=== PATIENT | male | born 1955 | race American Indian/Alaskan Native ===

== ENCOUNTER 2018-04-06 10:00 | Inpatient (IN) | payer OTHER ==
--- NOTE | 2018-04-06 11:18 | ED PDOC ---
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 Patient denies fevers or chills. He denies pain. He is complaining of an ulceration to the plantar aspect of the right foot over the first MTP. Patient states he's completed a course of Levaquin by mouth and was sent in for admission, IV antibiotics and debridement of the wound. Past Medical History - Provider Review Nursing Documentation Reviewed: Yes - Travel History Have you recently traveled outside [place] w/in the past 3 mons?: No - Infectious Disease Hx of Infectious Diseases: None - Tetanus Immunization Tetanus Immunization: Up to Date - Cardiac Hx Angina: No Hx Cardiac Arrhythmia: No Hx Circulatory Problems: No Hx Congestive Heart Failure: No Hx Heart Murmur: No Hx Heart Transplant: No Hx Internal Defibrillator: No Hx Mitral Valve Prolapse: No Hx Pacemaker: No Hx Peripheral Edema: No Hx Peripheral Vascular Disease: No - Pulmonary Hx Asthma: No Hx Bronchitis: No Hx Emphysema: No Hx Pneumonia: No Hx Respiratory Aspiration: No Hx Respiratory Tract Infection: No Hx Sleep Apnea: No Hx Tuberculosis: No - Neurological Hx Alzheimer's Disease: No HX Cerebrovascular Accident: No Hx Dementia: No Hx Dizziness: No Hx Meningitis: No Hx Migraine: No Hx Parkinson's Disease: No Hx Seizures: No Hx Transient Ischemic Attacks (TIA): No - HEENT Other/Comment: glasses - Renal Hx Renal Disorder: No - Endocrine/Metabolic Hx Endocrine Disorders: Yes Hx Diabetes Mellitus Type 2: Yes (recently diagnosed) - Hematological/Oncological Hx AIDS: No Hx Anemia: No Hx Cancer: No Hx Chemotherapy: No Hx Cirrhosis: No Hx Hepatitis A: No Hx Hepatitis B: No Hx Hepatitis C: No Hx Metastasis: No Hx Shingles: No Hx Unexplained Bleeding: No - Integumentary Hx Dermatological Disorder: Yes Other/Comment: toe ulcer - Musculoskeletal/Rheumatological Hx Osteomyelitis: Yes - Gastrointestinal Hx Gastrointestinal Disorders: No - Genitourinary/Gynecological Hx Genitourinary Disorders: No - Psychiatric Hx Psychophysiologic Disorder: No Hx Substance Use: No - Surgical History Hx Cardiac Catheterization: No Hx Coronary Stent: No - Anesthesia Hx Anesthesia: Yes Hx Anesthesia Reactions: No Hx Malignant Hyperthermia: No Family/Social History - Physician Review Nursing Documentation Reviewed: Yes Family/Social History: Unknown Family HX Smoking Status: Never Smoked Hx Alcohol Use: No Hx Substance Use: No Allergies/Home Meds Allergies/Adverse Reactions: Allergies No Known Allergies Allergy (Verified 05/02/15 13:14) Review of Systems - Review of Systems Constitutional: absent: Fatigue, Fevers Respiratory: absent: SOB, Cough Cardiovascular: absent: Chest Pain, Palpitations Gastrointestinal: absent: Abdominal Pain, Nausea, Vomiting Genitourinary Male: absent: Dysuria Musculoskeletal: absent: Arthralgias, Back Pain, Neck Pain Skin: Skin Lesions (foot ulcer) Psychiatric: absent: Anxiety, Depression Physical Exam Vital Signs Reviewed: Yes Vital Signs Temp Pulse Resp BP Pulse Ox 04/06/18 10:27 98.2 F 81 18 176/92 H 100 Temperature: Afebrile Blood Pressure: Hypertensive Pulse: Regular Respiratory Rate: Normal Appearance: Positive for: Well-Appearing, Non-Toxic, Comfortable Pain Distress: None Mental Status: Positive for: Alert and Oriented X 3 Finger Stick Blood Glucose: 155 - Systems Exam Head: Present: Atraumatic Mouth: Present: Moist Mucous Membranes Respiratory/Chest: Present: Clear to Auscultation Cardiovascular: Present: Regular Rate and Rhythm Upper Extremity: Present: NORMAL PULSES, Swelling, Erythema, Neurovascularly I ntact, Capillary Refill < 2s, Other (right foot; + dime sized ulceration to plantar aspect of foot over 1st MTP. + edema, + surrounding erythema; sensation and distal pulses intact. ). No: Tenderness Neurological: Present: GCS=15 Skin: Present: Warm, Dry Psychiatric: Present: Alert, Oriented x 3 Medical Decision Making ED Course and Treatment: 04/06/18 11:18 62yr old male with non healing wound to plantar aspect of right foot despite outpatient antibiotics Case was discussed with Dr. Galan; she advised starting teflaro; states wound cultures are still pending. cbc wnl cmp elevated bun/cr pt ptt blood cultures pending xray; no fb, no acute fracture cxr; wnl ekg; normal sinus rhythm at 80 bpm normal axis no ST elevations QTc [address] tan; accepts admission to medicine for diabetic with a nonhealing wound to the plantar aspect of the foot with failure of outpatient antibiotics impression; infected wound, failure of outpatient abx. admit to med/surg - Lab Interpretations Lab Results: Lab Results 04/06/18 10:26: POC Glucose (mg/dL) 155 H Disposition/Present on Arrival - Present on Arrival Any Indicators Present on Arrival: Yes History of DVT/PE: No History of Uncontrolled Diabetes: Yes Urinary Catheter: No History of Decub. Ulcer: No History Surgical Site Infection Following: None - Disposition Have Diagnosis and Disposition been Completed?: Yes Diagnosis: Right foot ulcer, Failure of outpatient treatment Disposition Time: 11:21 Patient Plan: Admission Patient Problems: Current Active Problems Problem Status Onset Failure of outpatient treatment Acute Right foot ulcer Acute Condition: FAIR
[2018-04-06 11:33] LABS: BASO # 0.01 K/mm3 (0.0-2.0); BASO % 0.2 % (0.0-3.0); EOS # 0.1 (0.0-0.7); EOS % 1.4 % (1.5-5.0); GRAN # 3.56 (1.4-6.5); GRAN % 72.4 % (50.0-68.0); HEMOGLOBIN 10.8 g/dL (14.0-18.0); LYMPH # 1.1 (1.2-3.4); LYMPH % 21.5 % (22.0-35.0); MEAN CELL VOLUME 87.4 fl (80.0-105.0); MEAN CORPUSCULAR HEMOGLOBIN 28.3 pg (25.0-35.0); MEAN CORPUSCULAR HGB CONC 32.4 g/dl (31.0-37.0); MEAN PLATELET VOLUME 9.3 fl (7.0-11.0); MONO # 0.2 (0.1-0.6); MONO % 4.5 % (1.0-6.0); RBC 3.81 10^6/uL (3.5-6.1); RED CELL DISTRIBUTION WIDTH 14.2 % (11.5-14.5); WHITE BLOOD COUNT 4.9 10^3/uL (4.5-11.0)
[2018-04-06 11:37] LABS: ALB/GLOB RATIO 1.2 (1.1-1.8); CALCIUM 9.5 mg/dL (8.4-10.5); INR 1.18; PARTIAL THROMBOPLASTIN TIME 31.3 Seconds (25.1-36.5); PROTHROMBIN TIME 13.6 SECONDS (9.4-12.5)
--- NOTE | 2018-04-06 12:34 | RAD ---
Date of service: 04/06/2018 PROCEDURE: Right Foot Radiographs. HISTORY: ulcer; plantar aspect first MTP COMPARISON: None. FINDINGS: BONES: There has been amputation at the level of the proximal 1st metatarsal. There is some bony bridging between the base of the 2nd and 3rd metatarsal. There are degenerative changes in the midfoot. JOINTS: As above SOFT TISSUES: Normal. OTHER FINDINGS: None. IMPRESSION: There has been amputation at the level of the proximal 1st metatarsal. There is some bony bridging between the base of the 2nd and 3rd metatarsal. There are degenerative changes in the midfoot.
[2018-04-06] MEDS ORDERED: Vancomycin 1gm in NS 250ml 1 GM/250 ML BAG IVPB STA (12:53)
[2018-04-06] MEDS ORDERED: Piperacillin/Tazobact 3.375 gm 100 ML IVPB STA (12:53)
[2018-04-06] MEDS ORDERED: Vancomycin 1.25 GM in Sodium Chloride 0.9% 500 ML IVPB ONE (13:17)
--- NOTE | 2018-04-06 14:01 | CP.PCM.HP ---
History of Present Illness - History of Present Illness History of Present Illness: 62 year old male with past medical history of osteomyelitis of the foot, right great toe amputation in 2016, diabetes presents with right foot ulcer. Patient states he see Dr. Galan as an outpatient, and this past Friday he was seen in the office where the wound on the foot seemed it was getting worse. The ulcer is located in the plantar aspect of the right foot, without any drainage. Dr. Galan advised the patient to start levofloxacin and come in to the hospital for possible debridement. Patient denies any pain sensation, drainage from wounds, fever, chills, nausea, vomiting, abdominal pain, chest pain, shortness of breath or any other complaints at this time. He states his blood sugar is usually well controlled at home. Medical History: osteomyelitis of the foot, right great toe amputation in 2016, diabetes Surgical History: right great toe amputation in 2016 at [facility] Allergies: NKDA Social: denies alcohol, tobacco, or drug use Family History: denies Medications: levofloxacin, metformin 1000mg Present on Admission - Present on Admission Any Indicators Present on Admission: No Review of Systems - Constitutional Constitutional: absent: Chills, Fever - EENT Eyes: absent: Change in Vision - Cardiovascular Cardiovascular: absent: Chest Pain, Dyspnea - Respiratory Respiratory: absent: Dyspnea - Gastrointestinal Gastrointestinal: absent: Abdominal Pain, Constipation, Cramping, Diarrhea, Dysphagia, Hematochezia - Genitourinary Genitourinary: absent: Dysuria, Flank Pain - Musculoskeletal Musculoskeletal: absent: Atrophy, Back Pain - Integumentary Integumentary: Skin Ulcer Additional comments: right foot ulcer - Neurological Neurological: absent: Abnormal Gait, Burning Sensations, Dizziness, Numbness, Focal Weakness, Tingling, Vertigo, Weakness - Hematologic/Lymphatic Hematologic: absent: Easy Bleeding, Easy Bruising, Lymphadenopathy Past Patient History - Infectious Disease Hx of Infectious Diseases: None - Tetanus Immunizations Tetanus Immunization: Up to Date - Past Medical History & Family History Past Medical History?: Yes - Past Social History Smoking Status: Never Smoked - CARDIAC Hx Angina: No Hx Cardia Arrhythmia: No Hx Circulatory Problems: No Hx Congestive Heart Failure: No Hx Heart Murmur: No Hx Heart Transplant: No Hx Internal Defibrillator: No Hx Mitral Valve Prolapse: No Hx Pacemaker: No Hx Peripheral Edema: No Hx Peripheral Vascular Disease: No - PULMONARY Hx Asthma: No Hx Bronchitis: No Hx Emphysema: No Hx Pneumonia: No Hx Respiratory Aspiration: No Hx Respiratory Tract Infection: No Hx Sleep Apnea: No Hx Tuberculosis: No - NEUROLOGICAL Hx Alzheimer's Disease: No HX Cerebrovascular Accident: No Hx Dementia: No Hx Dizziness: No Hx Meningitis: No Hx Migraine: No Hx Parkinson's Disease: No Hx Seizures: No Hx Transient Ischemic Attacks (TIA): No - HEENT Other/Comment: glasses - RENAL Hx Chronic Kidney Disease: No - ENDOCRINE/METABOLIC Hx Endocrine Disorders: Yes Hx Diabetes Mellitus Type 2: Yes (recently diagnosed) - HEMATOLOGICAL/ONCOLOGICAL Hx AIDS: No Hx Anemia: No Hx Cancer: No Hx Chemotherapy: No Hx Cirrhosis: No Hx Hepatitis A: No Hx Hepatitis B: No Hx Hepatitis C: No Hx Metastesis: No Hx Shingles: No Hx Unexplained Bleeding: No - INTEGUMENTARY Hx Dermatological Problems: Yes Other/Comment: toe ulcer - MUSCULOSKELETAL/RHEUMATOLOGICAL Hx Osteomyelitis: Yes - GASTROINTESTINAL Hx Gastrointestinal Disorders: No - GENITOURINARY/GYNECOLOGICAL Hx Genitourinary Disorders: No - PSYCHIATRIC Hx Psychophysiologic Disorder: No Hx Substance Use: No - SURGICAL HISTORY Hx Cardiac Catheterization: No Hx Coronary Stent: No - ANESTHESIA Hx Anesthesia: Yes Hx Anesthesia Reactions: No Hx Malignant Hyperthermia: No Meds Allergies/Adverse Reactions: Allergies Allergy/AdvReac Type Severity Reaction Status Date / Time No Known Allergies Allergy Verified 05/02/15 13:14 Physical Exam - Constitutional Appears: Non-toxic, No Acute Distress - Head Exam Head Exam: ATRAUMATIC, NORMAL INSPECTION, NORMOCEPHALIC - Eye Exam Eye Exam: EOMI, Normal appearance Pupil Exam: NORMAL ACCOMODATION - ENT Exam ENT Exam: Mucous Membranes Moist - Neck Exam Neck exam: Positive for: Normal Inspection - Respiratory Exam Respiratory Exam: Clear to Auscultation Bilateral, NORMAL BREATHING PATTERN - Cardiovascular Exam Cardiovascular Exam: REGULAR RHYTHM, +S1, +S2 - GI/Abdominal Exam GI & Abdominal Exam: Normal Bowel Sounds, Soft. absent: Tenderness - Extremities Exam Extremities exam: Positive for: full ROM, pedal pulses present. Negative for: pedal edema, tenderness Additional comments: right foot ulcer on plantar aspect - Neurological Exam Neurological exam: Alert, CN II-XII Intact, Oriented x3 - Skin Skin Exam: Warm Results - Vital Signs Recent Vital Signs: Last Vital Signs Temp 98.2 F 04/06/18 10:27 Pulse 78 04/06/18 13:24 Resp 18 04/06/18 13:24 BP 168/89 H 04/06/18 13:24 Pulse Ox 100 04/06/18 13:24 - Labs Result Diagrams: 04/06/18 11:00 04/06/18 11:00 Labs: Laboratory Results - last 24 hr 04/06/18 04/06/18 04/06/18 10:26 11:00 11:00 WBC RBC Hgb Hct MCV MCH MCHC RDW Plt Count MPV Gran % Lymph % (Auto) [place] % (Auto) Eos % (Auto) Baso % (Auto) Gran # Lymph # (Auto) [place] # (Auto) Eos # (Auto) Baso # (Auto) PT 13.6 H INR 1.18 APTT 31.3 Sodium 139 Potassium 4.7 Chloride 102 Carbon Dioxide 30 Anion Gap 12 BUN 31 H Creatinine 2.0 H Est GFR ( Amer) 41 Est GFR (Non-Af Amer) 34 POC Glucose (mg/dL) 155 H Random Glucose 145 H Calcium 9.5 Total Bilirubin 0.4 AST 27 ALT 17 Alkaline Phosphatase 95 Total Protein 7.4 Albumin 4.0 Globulin 3.4 Albumin/Globulin Ratio 1.2 04/06/18 11:00 WBC 4.9 D RBC 3.81 Hgb 10.8 L Hct 33.3 L MCV 87.4 MCH 28.3 MCHC 32.4 RDW 14.2 Plt Count 165 MPV 9.3 Gran % 72.4 H Lymph % (Auto) 21.5 L [place] % (Auto) 4.5 Eos % (Auto) 1.4 L Baso % (Auto) 0.2 Gran # 3.56 Lymph # (Auto) 1.1 L [place] # (Auto) 0.2 Eos # (Auto) 0.1 Baso # (Auto) 0.01 PT INR APTT Sodium Potassium Chloride Carbon Dioxide Anion Gap BUN Creatinine Est GFR ( Amer) Est GFR (Non-Af Amer) POC Glucose (mg/dL) Random Glucose Calcium Total Bilirubin AST ALT Alkaline Phosphatase Total Protein Albumin Globulin Albumin/Globulin Ratio Assessment & Plan - Assessment and Plan (Free Text) Assessment: 62 year old male with past medical history of osteomyelitis of the foot, right great toe amputation in 2016, diabetes presents with right foot ulcer. Plan: 1. Right Foot Ulcer-rule out osteomyelitis -EKG -Chest xray shows no active disease -wound cultures, blood cultures, urine cultures pending -Afebrile -no leukocytosis -right foot xray: There has been amputation at the level of the proximal 1st metatarsal. There is some bony bridging between the base of the 2nd and 3rd metatarsal. There are degenerative changes in the midfoot. -Right foot MRi pending -ESR, CRP pending -procal pending -ID , consulted, Boghossian, follow recs -started Vancotom in ED -teflaro IV started 2. DM -insulin sliding scale with ACHS -hold home metformin -hemoglobin A1C pending -glycomark pending -fructosamine pending 3. Low normal WBC coiunt -WBC 4.9 -HIV 4th generation pending -RPR 4. Anemia -Hgb 10.8 -Iron studies -stool occult blood x3 -B12, folate levels pending -retic count -soluble transferrin -erythropoetin level pending -CBC daily 5. KAT v Diabetic Nephropathy -BUN: 31 Cr: 2 -IV fluids -continue to monitor -CMP daily GI: protonix DVT: Heparin SC Case discussed and approved with attending Dr. Rivero
--- NOTE | 2018-04-06 14:23 | RAD ---
Date of service: 04/06/2018 HISTORY: admission COMPARISON: 05/02/2015 FINDINGS: LUNGS: No active pulmonary disease. PLEURA: No significant pleural effusion identified, no pneumothorax apparent. CARDIOVASCULAR: No aortic atherosclerotic calcification present. Normal cardiac size. No pulmonary vascular congestion. OSSEOUS STRUCTURES: No significant abnormalities. VISUALIZED UPPER ABDOMEN: Normal. OTHER FINDINGS: None. IMPRESSION: No active disease.
[2018-04-06 16:16] LABS: IRON 61 ug/dL (45-180)
[2018-04-06 16:17] LABS: HDL CHOLESTEROL 42 mg/dL (29-60)
[2018-04-06 16:27] LABS: % IRON SATURATION 17 % (20-55); TOTAL IRON BINDING CAPACITY 347 ug/dL (261-462)
[2018-04-06 16:28] LABS: LDL CHOLESTEROL 96 mg/dL (0-129)
[2018-04-06] MEDS: Insulin Reg-LOW-Coverage SC SCH ×2 (16:44→22:11)
--- NOTE | 2018-04-06 16:46 | CARD ---
APPROVED REPORT Date of service: 04/06/2018 EKG Measurement Heart [id number] <Conclusion> Normal sinus rhythm Nonspecific T wave abnormality Abnormal ECG
[2018-04-06] MEDS ORDERED: Insulin Detemir 100 units/ml Vial (Levemir) SC SCH (17:00)
--- NOTE | 2018-04-06 17:09 | CP.PCM.CON ---
<Kathi Streeter - Last Filed: 04/06/18 17:38> History of Present Illness - History of Present Illness History of Present Illness: Podiatry consult note for Dr. Galan/Sarai, 62 year old male with past medical history of osteomyelitis of the foot, right great toe amputation in 2016, diabetes presents with right foot ulcer. Patient is currently seeing Dr. Galan as an outpatient, and this past Friday he was seen in the office where the wound on the foot seemed it was getting worse. Patient denies any pain sensation, drainage from wounds, fever, chills, nausea, vomiting, chest pain, shortness of breath or any other complaints at this time. Medical History: osteomyelitis of the foot, right great toe amputation in 2016, diabetes Surgical History: right great toe amputation in 2016 at [facility] Allergies: NKDA Social: denies alcohol, tobacco, or drug use Family History: denies Medications: levofloxacin, metformin 1000mg Past Patient History - Infectious Disease Hx of Infectious Diseases: None - Tetanus Immunizations Tetanus Immunization: Up to Date - Past Medical History & Family History Past Medical History?: Yes - Past Social History Smoking Status: Never Smoked - CARDIAC Hx Angina: No Hx Cardia Arrhythmia: No Hx Circulatory Problems: No Hx Congestive Heart Failure: No Hx Heart Murmur: No Hx Heart Transplant: No Hx Internal Defibrillator: No Hx Mitral Valve Prolapse: No Hx Pacemaker: No Hx Peripheral Edema: No Hx Peripheral Vascular Disease: No - PULMONARY Hx Asthma: No Hx Bronchitis: No Hx Emphysema: No Hx Pneumonia: No Hx Respiratory Aspiration: No Hx Respiratory Tract Infection: No Hx Sleep Apnea: No Hx Tuberculosis: No - NEUROLOGICAL Hx Alzheimer's Disease: No HX Cerebrovascular Accident: No Hx Dementia: No Hx Dizziness: No Hx Meningitis: No Hx Migraine: No Hx Parkinson's Disease: No Hx Seizures: No Hx Transient Ischemic Attacks (TIA): No - HEENT Other/Comment: glasses - RENAL Hx Chronic Kidney Disease: No - ENDOCRINE/METABOLIC Hx Endocrine Disorders: Yes Hx Diabetes Mellitus Type 2: Yes (recently diagnosed) - HEMATOLOGICAL/ONCOLOGICAL Hx AIDS: No Hx Anemia: No Hx Cancer: No Hx Chemotherapy: No Hx Cirrhosis: No Hx Hepatitis A: No Hx Hepatitis B: No Hx Hepatitis C: No Hx Metastesis: No Hx Shingles: No Hx Unexplained Bleeding: No - INTEGUMENTARY Hx Dermatological Problems: Yes Other/Comment: toe ulcer - MUSCULOSKELETAL/RHEUMATOLOGICAL Hx Osteomyelitis: Yes - GASTROINTESTINAL Hx Gastrointestinal Disorders: No - GENITOURINARY/GYNECOLOGICAL Hx Genitourinary Disorders: No - PSYCHIATRIC Hx Psychophysiologic Disorder: No Hx Substance Use: No - SURGICAL HISTORY Hx Cardiac Catheterization: No Hx Coronary Stent: No - ANESTHESIA Hx Anesthesia: Yes Hx Anesthesia Reactions: No Hx Malignant Hyperthermia: No Meds Allergies/Adverse Reactions: Allergies Allergy/AdvReac Type Severity Reaction Status Date / Time No Known Allergies Allergy Verified 04/06/18 15:52 - Medications Medications: Current Medications Heparin Sodium (Porcine) (Heparin) 5,000 units SC Q12 [facility]; Protocol Sodium Chloride (Sodium Chloride 0.9%) 1,000 mls @ 100 mls/hr IV .Q10H [facility] Ceftaroline Fosamil 400 mg/ (Sodium Chloride) 100 mls @ 100 mls/hr IVPB Q12 [facility]; Protocol Stop: 04/06/18 22:59 Insulin Human Regular (Humulin R Low) 0 units SC ACHS [facility]; Protocol Last Admin: 04/06/18 16:44 Dose: Not Given Pantoprazole Sodium (Protonix Ec Tab) 40 mg PO 0600 [facility] Physical Exam - Constitutional Appears: Well, Non-toxic, No Acute Distress - Head Exam Head Exam: ATRAUMATIC, NORMOCEPHALIC - Extremities Exam Additional comments: Left lower extremity: vascular: DP/PT pulses palpable, CFT <3 secs x 4, tg warm to warm, no erythema noted, minimal edema noted neuro: protective sensation intact derm: 1 cm x 1cm wound noted on the plantar aspect of submet 1, probes to bone, no malodor, tracking and tunneling noted, no active drainage, no erythema noted, minimal edema suleman wound. no other open lesions noted ortho: no pain on palpation to the area - Neurological Exam Neurological exam: Alert, Oriented x3 - Psychiatric Exam Psychiatric exam: Normal Affect - Skin Skin Exam: Normal Color Results - Vital Signs Recent Vital Signs: Last Vital Signs Temp 98 F 04/06/18 15:46 Pulse 98 H 04/06/18 15:46 Resp 18 04/06/18 15:46 BP 144/88 04/06/18 15:46 Pulse Ox 100 04/06/18 15:46 - Labs Result Diagrams: 04/06/18 11:00 04/06/18 11:00 Labs: Laboratory Results - last 24 hr 04/06/18 04/06/18 04/06/18 10:26 11:00 11:00 WBC RBC Hgb Hct MCV MCH MCHC RDW Plt Count MPV Gran % Lymph % (Auto) Pine % (Auto) Eos % (Auto) Baso % (Auto) Gran # Lymph # (Auto) Pine # (Auto) Eos # (Auto) Baso # (Auto) ESR Retic Count PT 13.6 H INR 1.18 APTT 31.3 Sodium 139 Potassium 4.7 Chloride 102 Carbon Dioxide 30 Anion Gap 12 BUN 31 H Creatinine 2.0 H Est GFR ( Amer) 41 Est GFR (Non-Af Amer) 34 POC Glucose (mg/dL) 155 H Random Glucose 145 H Lactic Acid Calcium 9.5 Iron TIBC % Saturation Total Bilirubin 0.4 AST 27 ALT 17 Alkaline Phosphatase 95 Total Protein 7.4 Albumin 4.0 Globulin 3.4 Albumin/Globulin Ratio 1.2 Triglycerides Cholesterol LDL Cholesterol Direct HDL Cholesterol 04/06/18 04/06/18 04/06/18 11:00 16:02 16:02 WBC 4.9 D RBC 3.81 Hgb 10.8 L Hct 33.3 L MCV 87.4 MCH 28.3 MCHC 32.4 RDW 14.2 Plt Count 165 MPV 9.3 Gran % 72.4 H Lymph % (Auto) 21.5 L Pine % (Auto) 4.5 Eos % (Auto) 1.4 L Baso % (Auto) 0.2 Gran # 3.56 Lymph # (Auto) 1.1 L Pine # (Auto) 0.2 Eos # (Auto) 0.1 Baso # (Auto) 0.01 ESR Retic Count PT INR APTT Sodium Potassium Chloride Carbon Dioxide Anion Gap BUN Creatinine Est GFR ( Amer) Est GFR (Non-Af Amer) POC Glucose (mg/dL) Random Glucose Lactic Acid Calcium Iron 61 TIBC 347 % Saturation 17 L Total Bilirubin AST ALT Alkaline Phosphatase Total Protein Albumin Globulin Albumin/Globulin Ratio Triglycerides 112 Cholesterol 152 LDL Cholesterol Direct 96 HDL Cholesterol 42 04/06/18 04/06/18 04/06/18 16:02 16:02 16:02 WBC RBC Hgb Hct MCV MCH MCHC RDW Plt Count MPV Gran % Lymph % (Auto) Pine % (Auto) Eos % (Auto) Baso % (Auto) Gran # Lymph # (Auto) Pine # (Auto) Eos # (Auto) Baso # (Auto) ESR 52 H Retic Count 0.63 PT INR APTT Sodium Potassium Chloride Carbon Dioxide Anion Gap BUN Creatinine Est GFR ( Amer) Est GFR (Non-Af Amer) POC Glucose (mg/dL) Random Glucose Lactic Acid 1.6 Calcium Iron TIBC % Saturation Total Bilirubin AST ALT Alkaline Phosphatase Total Protein Albumin Globulin Albumin/Globulin Ratio Triglycerides Cholesterol LDL Cholesterol Direct HDL Cholesterol 04/06/18 16:08 WBC RBC Hgb Hct MCV MCH MCHC RDW Plt Count MPV Gran % Lymph % (Auto) Pine % (Auto) Eos % (Auto) Baso % (Auto) Gran # Lymph # (Auto) Pine # (Auto) Eos # (Auto) Baso # (Auto) ESR Retic Count PT INR APTT Sodium Potassium Chloride Carbon Dioxide Anion Gap BUN Creatinine Est GFR ( Amer) Est GFR (Non-Af Amer) POC Glucose (mg/dL) 98 Random Glucose Lactic Acid Calcium Iron TIBC % Saturation Total Bilirubin AST ALT Alkaline Phosphatase Total Protein Albumin Globulin Albumin/Globulin Ratio Triglycerides Cholesterol LDL Cholesterol Direct HDL Cholesterol Assessment & Plan - Assessment and Plan (Free Text) Assessment: 62 yo male seen and evaluated for left foot wound; possible osteomyelitis Plan: Patient seen and evaluated Chart, labs and vitals reviewed; absent leukocytosis and afebrile Wound cleansed with saline Wound cultures taken and ordered Dressed with maxorb and optifoam MRI of the lower extremity orderd x-ray of the lower extremity ordered MOHIT/PVR ordered Podiatry will continue to follow the patient thank you for the consult <Mable Galan - Last Filed: 04/11/18 14:00> Meds - Medications Medications: Current Medications Acetaminophen (Tylenol 325mg Tab) 650 mg PO Q6H PRN PRN Reason: Pain, Mild (1-3) Atorvastatin Calcium (Lipitor) 40 mg PO DIN [facility] Last Admin: 04/10/18 17:19 Dose: 40 mg Docusate Sodium (Colace) 100 mg PO TID [facility] Last Admin: 04/11/18 09:28 Dose: Not Given Heparin Sodium (Porcine) (Heparin) 5,000 units SC Q12 [facility]; Protocol Last Admin: 04/08/18 09:10 Dose: Not Given Sodium Chloride (Sodium Chloride 0.9%) 1,000 mls @ 100 mls/hr IV .Q10H [facility] Last Admin: 04/11/18 04:33 Dose: Not Given Iron Sucrose 200 mg/ Sodium (Chloride) 110 mls @ 110 mls/hr IVPB DAILY [facility] Stop: 04/12/18 10:59 Last Admin: 04/11/18 10:49 Dose: 110 mls/hr Ceftaroline Fosamil 600 mg/ (Sodium Chloride) 100 mls @ 100 mls/hr IVPB Q12 [facility]; Protocol Stop: 04/18/18 14:01 Last Admin: 04/11/18 09:29 Dose: 100 mls/hr Insulin Human Regular (Humulin R Low) 0 units SC ACHS [facility]; Protocol Last Admin: 04/11/18 10:48 Dose: Not Given Levalbuterol HCl (Xopenex) 0.63 mg IH [id number] [facility] Last Admin: 04/11/18 13:37 Dose: Not Given Metoprolol Tartrate (Lopressor) 25 mg PO BID [facility] Last Admin: 04/11/18 09:29 Dose: 25 mg Oxycodone/Acetaminophen (Percocet 5/325 Mg Tab) 1 tab PO Q6H PRN PRN Reason: Pain, moderate (4-7) Stop: 04/12/18 09:44 Oxycodone/Acetaminophen (Percocet 5/325 Mg Tab) 2 tab PO Q6H PRN PRN Reason: Pain, severe (8-10) Stop: 04/12/18 09:44 Pantoprazole Sodium (Protonix Ec Tab) 40 mg PO 0600 [facility] Last Admin: 04/11/18 05:53 Dose: 40 mg Polyethylene Glycol (Miralax) 17 gm PO BID [facility] Last Admin: 04/11/18 10:48 Dose: Not Given Results - Vital Signs Recent Vital Signs: Last Vital Signs Temp 98.3 F 04/11/18 07:30 Pulse 65 04/11/18 09:29 Resp 20 04/11/18 07:30 BP 125/76 04/11/18 09:29 Pulse Ox 98 04/11/18 07:30 - Labs Result Diagrams: 04/10/18 07:00 04/10/18 07:00 Labs: Laboratory Results - last 24 hr 11/02/18 11/02/18 11/03/18 16:16 21:12 06:26 POC Glucose (mg/dL) 150 H 170 H 113 H Attending/Attestation - Attestation I have personally seen and examined this patient.: Yes I have fully participated in the care of the patient.: Yes I have reviewed all pertinent clinical information: Yes
[2018-04-06 18:56] VITALS: BMI 25.2
[2018-04-06] MEDS ORDERED: Pneumococcal 23-Valent Vaccine IM ONE (18:56)
[2018-04-06] MEDS ORDERED: Influenza Vaccine 60 mcg/0.5 mL SYR (4YR UP) IM ONE (18:56)
[2018-04-06] MEDS: Sodium Chloride 0.9% 1,000 ML IV SCH (19:42)
[2018-04-06 23:30] LABS: FREE T4 1.09 ng/dL (0.78-2.19); T4 6.3 ug/dL (5.5-11.0)
[2018-04-06 23:43] LABS: T3 0.91 ng/mL (0.97-1.69)
[2018-04-07 05:35] LABS: URINE BILIRUBIN NEGATIVE (NEGATIVE); URINE BLOOD NEGATIVE (NEGATIVE); URINE GLUCOSE (UA) NEGATIVE (NEGATIVE); URINE LEUKOCYTE ESTERASE NEGATIVE Leu/uL (NEGATIVE); URINE PROTEIN NEGATIVE mg/dL (<30 mg/dL); URINE UROBILINOGEN 0.2 E.U./dL (<1 E.U./dL)
[2018-04-07] MEDS: Pantoprazole 40 mg EC Tab PO SCH (05:36)
[2018-04-07 05:40] LABS: URINE APPEARANCE CLEAR (CLEAR); URINE COLOR YELLOW (YELLOW)
[2018-04-07] MEDS: Sodium Chloride 0.9% 1,000 ML IV SCH ×2 (05:51→13:43)
--- NOTE | 2018-04-07 06:05 | HP ---
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 Galan as an outpatient under wound care for his right toe and foot infection. According to the ER staff evaluation, the patient was sent to the emergency room by the sand buffer, Dr. Galan, for a nonhealing right foot infection and ulceration, which has failed oral antibiotic outpatient treatment. The patient has been treated with Levaquin [address] Galan as an outpatient. The patient came as an ambulatory walk-in. The patient does complain of nonhealing right foot plantar aspect ulceration, which has been managed as outpatient by Dr. Galan and has been treated in the past with hyperbaric. REVIEW OF SYSTEMS: A 13-system review was done, pertinent positives and negatives dictated above. CODE STATUS: Full code. LIVING WILL/ADVANCED DIRECTIVE: None. ALLERGIES: NONE. HOME MEDICATIONS: Levaquin and metformin 1000 mg twice a day. SOCIAL HISTORY: Never smoked. No alcohol, no smoking, no drug use, and no communicable transmissible disease. FAMILY HISTORY: The patient has a family history of gestational diabetes in mother. Denies any other family history. 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 PAST MEDICAL/SURGICAL HISTORY: History of osteomyelitis of the right great toe, history of right toe amputation, history of osteomyelitis of the right foot. The patient's past medical history is also significant for noninsulin-requiring diabetes mellitus, history of hypertension, history of osteomyelitis, history of anemia, history of right great toe amputation. The patient's past medical history also appears to be history of chronic anemia since the last 2 to 3 years, history of leukopenia, history of elevated erythrocyte sedimentation rate, history of hyperglycemia, history of elevated C-reactive protein, history of uncontrolled diabetes mellitus with hemoglobin A1c of 12.6 in 2015, history of glycosuria, history of corynebacterium and Providencia rettgeri and Streptococcus anginosus and Gabriela albicans right foot toe infection, history of beta hemolytic strep right toe infection. The patient's past medical history is also significant for history of left upper extremity PICC line placement in 2014, history of osteomyelitis of the right foot first toe metatarsal amputation, history of hypertension, history of diabetes mellitus, history of right toe osteomyelitis, history of insulin-requiring diabetes mellitus till 05/2015, history of hypertension treated with enalapril, history of amputation of the right foot great toe. PHYSICAL EXAMINATION: GENERAL: The patient is seen in room 570, bed 2. The patient is lying in the bed. The patient is comfortable. VITAL SIGNS: T-max 98.2, heart rate 81, 78, 80, and 90, blood pressure 176/92, 168/89, 161/81 [id number], respirations 18, O2 sat 98% to 100%. Height is 5 feet 10 inches. BMI 25.3. HEENT: Head examination normocephalic, atraumatic. HEENT examination shows pinkish pale conjunctivae. Anicteric sclerae. No oropharyngeal lesion. NECK: No neck rigidity. CHEST: Shows kyphosis. LUNGS: Shows no rales, crackles or wheezing. CARDIOVASCULAR: S1 and S2, regular rhythm. No audible murmur, gallop or rub. ABDOMEN: Soft. Positive bowel sound. GENITALIA: Male. RECTAL: Deferred. EXTREMITIES: Shows positive deformity of both feet. Positive right foot toe amputation. Positive right foot dime-sized ulceration noted on the plantar aspect of the foot over the first metatarsophalangeal joint, positive swelling. Positive edema and erythema noted, as per the examination in the emergency room. VASCULAR: The patient has possible decreased palpable pulses. Both feet are warm to touch. No pitting edema noted. Positive skin changes of both lower extremity noted. MUSCULOSKELETAL: Shows a body mass index of 25.3. DIAGNOSTICS DATA: Hemoglobin/hematocrit 10.8/33.3, platelets 165. Granulocytes 72% segs. ESR 52. Retic count 0.63. PT/PTT 13.6/31.3. Sodium 139, potassium 4.7, chloride 102, CO2 of 30, anion gap 12, BUN 31, creatinine 2, GFR 41, glucose 155, lactic acid 1.6, iron 61 and saturation 17. LFTs are normal. Cholesterol 152, LDL 96 and HDL 42. IMAGINING DATA: The patient had an EKG done, which was reviewed. Chest x-ray and foot x-rays were reviewed. Chest x-ray was negative for any active disease. The patient had a foot x-ray of the right foot and MRI of the right foot done. MRI was noted. The patient was seen in the emergency room. The patient was treated by the physician access services assistant. The patient was treated in the emergency room. The patient was given vancomycin 1.25 g and Zosyn 3.375 g IV x1 dose in the emergency room, and the patient was advised to be admitted. IMPRESSION: 1. Early right foot osteomyelitis of the residual first metatarsal bone with severe diabetic neuropathy and Charcot destructive changes. 2. Extensive deep tissue diffuse inflammatory changes of the right forefoot with degenerative joint disease of the metatarsal phalangeal joint of the second and the third toe. 3. Right foot first toe amputation with severe inflammatory soft tissue reaction and abscess formation at the amputation stump. 4. Right foot metatarsal bone reactive marrow edema with evidence of osteomyelitis of the first metatarsal bone. 5. Degenerative joint disease of the tarsometatarsal articulation, degenerative cyst and osteochondral ulcer and diabetic neuropathy and Charcot right foot. 6. Extensive deep tissue diffuse edema inflammatory changes at the sole of the foot, under the second and third metatarsal. 7. Degenerative joint disease of the metatarsophalangeal joint of the second and the third toe. 8. Right foot big toe amputation with degenerative joint disease of the forefoot and the midfoot. 9. Hypertension. 10. Normocytic anemia with anemia of chronic disease. 11. Granulocytosis. 12. Elevated erythrocyte sedimentation rate of greater than 50. 13. Acute kidney injury with chronic kidney disease stage III. 14. Hyperglycemia. 15. Hyperlipidemia. 16. History of osteomyelitis of the right foot and right great toe amputation. 17. History of insulin-requiring diabetes mellitus, history of hypertension, history of anemia. PLAN: At this time, the patient has been ordered iron studies. Hemoglobin A1c, lipid panel, repeat CMP, LFT, magnesium, and phosphorus had been ordered. The patient has been ordered repeat CBC. PATIENT'S CONSULTATIONS: 1. Infectious Disease. 2. Podiatry. CURRENT MEDICATIONS: Heparin 5000 subcu every 12, Humulin low-dose sliding scale coverage a.c. and h.s., Protonix 40 mg daily for GI prophylaxis, IV fluid 0.9 normal saline at 100 mL/hr, Teflaro 400 mg IV every 12. The patient received vancomycin 1.25 g and Zosyn 3.375 g IV in the emergency room. Arterial Doppler of the lower extremity ordered. MRI of the right foot was done. The patient is on consistent carbohydrate diet. Anemia workup has been ordered. Stool for occult blood ordered. At present, the patient is to be admitted to [facility]. The patient's further management will be dependent upon the patient's clinical condition, hemodynamic status and as per the patient's response to therapeutic intervention as per the patient's diagnostic test results. Thyroid panel has been ordered. The patient has been updated about his condition, diagnosis, test results, need for further diagnostic therapeutic intervention, need for possible surgical intervention, discussed and explained to the patient. The patient was explained about the MRI results. The patient was updated about his medical condition and diagnosis. The patient's hemoglobin A1c, fructosamine, erythropoietin, GlycoMark, soluble transferrin receptor, repeat CBC, blood cultures, urine cultures, and wound cultures are ordered. The patient's case will be referred for golf tournament consultant evaluation. The patient's case will be referred for TCU evaluation. The patient will be ordered out of bed to chair, head of the bed at 30 degrees. Fingerstick blood sugar a.c. and h.s. Physical therapy and occupational therapy will be ordered. At present, the patient's further management will be dependent upon the patient's clinical condition, hemodynamic status, and as per the patient's response to therapeutic intervention, as per the patient's diagnostic test results and as per recommendation by all the physicians involved in the care of the patient. At present, the patient's condition, diagnosis discussed and explained to the patient at length and all questions concerned answered. All questions concerned answered to the patient's satisfaction. Dictated and electronically signed, not read. Melo Rivero MD
[2018-04-07 07:21] LABS: BASO # 0.01 K/mm3 (0.0-2.0); BASO % 0.2 % (0.0-3.0); EOS # 0.1 (0.0-0.7); EOS % 2.5 % (1.5-5.0); GRAN # 3.28 (1.4-6.5); GRAN % 69.1 % (50.0-68.0); HEMOGLOBIN 10.1 g/dL (14.0-18.0); LYMPH # 1.1 (1.2-3.4); LYMPH % 22.9 % (22.0-35.0); MEAN CELL VOLUME 86.1 fl (80.0-105.0); MEAN CORPUSCULAR HGB CONC 32.5 g/dl (31.0-37.0); MEAN PLATELET VOLUME 9.1 fl (7.0-11.0); MONO # 0.3 (0.1-0.6); MONO % 5.3 % (1.0-6.0); RBC 3.61 10^6/uL (3.5-6.1); RED CELL DISTRIBUTION WIDTH 14.1 % (11.5-14.5); WHITE BLOOD COUNT 4.8 10^3/uL (4.5-11.0)
[2018-04-07] MEDS: Insulin Reg-LOW-Coverage SC SCH ×4 (07:30→21:40)
[2018-04-07 07:44] LABS: ALB/GLOB RATIO 1.1 (1.1-1.8); ALBUMIN 3.5 g/dL (3.0-4.8); BILIRUBIN,DIRECT 0.2 mg/dL (0.0-0.4); URIC ACID 6.8 mg/dL (3.5-8.5)
--- NOTE | 2018-04-07 08:59 | US ---
PROCEDURE: Lower extremity MOHIT exam HISTORY: Peripheral vascular disease with pain and ulceration. Diabetes. PHYSICIAN(S): Ciro Brown MD. FINDINGS: The resting MOHIT's are normal: right, 1.11and left, 0.34. The brachial systolic pressures are symmetric. The high thigh pressures are noncompressible. The high thigh PVR waveforms are normal and symmetric The calf PVR waveforms augment normally. No significant gradients are noted across the thighs. The ankle and metatarsal waveforms are relatively normal and symmetric. No significant pressure gradients are noted across the lower legs. IMPRESSION: 1. Relatively normal MOHIT and PVR examination at rest.
--- NOTE | 2018-04-07 11:32 | CT ---
Date of service: 04/07/2018 PROCEDURE: CT Chest, Abdomen and Pelvis without intravenous contrast HISTORY: ANEMIA COMPARISON: None available. TECHNIQUE: Radiation dose: Total exam DLP = 600.03 mGy-cm. This CT exam was performed using one or more of the following dose reduction techniques: Automated exposure control, adjustment of the mA and/or kV according to patient size, and/or use of iterative reconstruction technique. FINDINGS: CT CHEST WITHOUT CONTRAST: LUNGS: A scattered reticulonodular infiltrate pattern is seen at the right middle lobe predominantly but minimally affects right upper lower lobes. Tiny subpleural nodule is seen at the lingula with occasional reticular nodular changes at the right upper lobe superolaterally. No alveolitis bilaterally. Central airways are clear. MEDIASTINUM: Unremarkable. Normal caliber aorta and pulmonary arterial trunk. Limited distal thoracic aortic calcified atherosclerosis. Normal size heart. LYMPH NODES: Unremarkable. PLEURA: Unremarkable. No pneumothorax. No pleural fluid. BONES: Unremarkable. OTHER FINDINGS: None. CT ABDOMEN AND PELVIS: LIVER: Unremarkable. No gross lesion or ductal dilatation. GALLBLADDER AND BILE DUCTS: Unremarkable. PANCREAS: Unremarkable. No gross lesion or ductal dilatation. SPLEEN: Unremarkable. ADRENALS: Unremarkable. No mass. KIDNEYS AND URETERS: Unremarkable. No hydronephrosis. No solid mass. VASCULATURE: Nonaneurysmal abdominal aortic calcific atherosclerotic changes are identified. BOWEL: Moderate amount of retained fecal material scattered throughout the large bowel. No pericolic reaction. No bowel obstruction identified. Small bowel loops appear nonfocal grossly. Evaluation of the gastrointestinal tract is limited due to the lack of oral contrast administration. APPENDIX: Normal appendix. PERITONEUM: A small umbilical hernia is identified containing only a short segment of transverse colon. No free fluid. No free air. LYMPH NODES: Unremarkable. No enlarged lymph nodes. BLADDER: Unremarkable. REPRODUCTIVE: Unremarkable. BONES: No acute fracture. OTHER FINDINGS: None. IMPRESSION: Mild reticulonodular infiltrates appreciated at the right middle lobe primarily with minimal involvement of the right upper and lower lobes and lingular pleura as well. No signal lymphadenopathy is appreciated in the chest. Lack venous contrast limits evaluation the mediastinal anatomy. Clinically correlate for potential atypical infectious or inflammatory pneumonitis. No pleural effusion bilaterally. Lack of contrast agents limits the evaluation of the abdomen and pelvic viscera however no gross masses appreciated or significant lymphadenopathy. Small bili hernia contains a short segment of transverse colon without bowel obstruction/incarceration.
--- NOTE | 2018-04-07 12:35 | MRI ---
Date of service: 04/06/2018 PROCEDURE: MRI of the right foot without contrast HISTORY: rule out osteo COMPARISON: TECHNIQUE: MRI of the right foot was performed in multiple planes using multiple pulse sequences. FINDINGS: There is a heterogeneous soft tissue mass on the plantar aspect of the foot adjacent to the amputated 1st metatarsal. The finding is suspicious for an abscess or hematoma. This measures 28 x 37 x 46 mm. There is some marrow edema at the distal margin of the 1st metatarsal amputation. Considering that the amputation was not recent the finding is suspicious for osteomyelitis. Charcot type degenerative changes are seen throughout the midfoot. The report concurs with the preliminary [facility] report IMPRESSION: There is a heterogeneous soft tissue mass on the plantar aspect of the foot adjacent to the amputated 1st metatarsal. The finding is suspicious for an abscess or hematoma. This measures 28 x 37 x 46 mm. There is some marrow edema at the distal margin of the 1st metatarsal amputation. Considering that the amputation was not recent the finding is suspicious for osteomyelitis.
[2018-04-07 13:07] LABS: TRANSFERRIN 252.09 mg/dL (206-381)
[2018-04-07 13:25] LABS: FERRITIN 35.8 ng/mL
[2018-04-07 13:55] LABS: FOLATE > 20.0 ng/mL
--- NOTE | 2018-04-07 14:35 | CP.PCM.PN ---
Subjective - Date & Time of Evaluation Date of Evaluation: 04/07/18 Time of Evaluation: 14:30 - Subjective Subjective: Podiatry progress note for Dr. Galan/Sarai, 62 year old male with past medical history of osteomyelitis of the foot, right great toe amputation in 2016, diabetes seen at bedside with right foot ulcer. Patient denies acute overnight events. Patient denies any pain sensation, drainage from wounds, fever, chills, nausea, vomiting, chest pain, shortness of breath or any other complaints at this time. Objective - Vital Signs/Intake and Output Vital Signs (last 24 hours): Temp Pulse Resp BP Pulse Ox 98.2 F 78 20 120/95 H 99 04/07/18 08:01 04/07/18 09:40 04/07/18 08:01 04/07/18 09:40 04/07/18 08:01 - Medications Medications: Current Medications Atorvastatin Calcium (Lipitor) 40 mg PO DIN LUIS Heparin Sodium (Porcine) (Heparin) 5,000 units SC Q12 [facility]; Protocol Last Admin: 04/07/18 09:38 Dose: 5,000 units Sodium Chloride (Sodium Chloride 0.9%) 1,000 mls @ 100 mls/hr IV .Q10H [facility] Last Admin: 04/07/18 13:43 Dose: Not Given Insulin Human Regular (Humulin R Low) 0 units SC ACHS [facility]; Protocol Last Admin: 04/07/18 11:51 Dose: 1 unit Metoprolol Tartrate (Lopressor) 25 mg PO BID [facility] Last Admin: 04/07/18 09:40 Dose: 25 mg Pantoprazole Sodium (Protonix Ec Tab) 40 mg PO 0600 [facility] Last Admin: 04/07/18 05:36 Dose: 40 mg - Labs Labs: 04/07/18 07:00 04/07/18 07:00 PT 13.6 SECONDS (9.4-12.5) H 04/06/18 11:00 INR 1.18 04/06/18 11:00 APTT 31.3 Seconds (25.1-36.5) 04/06/18 11:00 - Constitutional Appears: Well, Non-toxic - Head Exam Head Exam: ATRAUMATIC - Extremities Exam Additional comments: Left lower extremity: vascular: DP/PT pulses palpable, CFT <3 secs x 4, tg warm to warm, no erythema noted, minimal edema noted neuro: protective sensation intact derm: 1 cm x 1cm wound noted on the plantar aspect of submet 1, probes to bone, no malodor, tracking and tunneling noted, no active drainage, no erythema noted, minimal edema suleman wound. no other open lesions noted ortho: no pain on palpation to the area - Neurological Exam Neurological Exam: Alert, Normal Gait - Psychiatric Exam Psychiatric exam: Normal Affect - Skin Skin Exam: Normal Color Assessment and Plan - Assessment and Plan (Free Text) Assessment: 62 yo male seen and evaluated for left foot wound; possible osteomyelitis Plan: Patient seen and evaluated Chart, labs and vitals reviewed; absent leukocytosis and afebrile Wound cleansed with saline Dressed with maxorb and optifoam MRI of the lower extremity ordered hetergenous soft tissue mass adjacent to amputated first met possible for abscess or hematoma. Some marrow edema at the d istal margin of the 1st metatarsal amputation. x-ray of the lower extremity ordered; midfoot degenerative changes MOHIT/PVR ordered; relatively normal MOHIT/PVR Podiatry plan: wound debridement with resection of the metatarsal (04/09); please provide medical clearance Podiatry will continue to follow the patient
--- NOTE | 2018-04-07 15:23 | US ---
Date of service: 04/07/2018 PROCEDURE: Ultrasound of the Kidneys HISTORY: KAT COMPARISON: None available. TECHNIQUE: Sonogram of the kidneys. FINDINGS: RIGHT KIDNEY: Measures: 9.9 x 6.0 x 7.6 cm. Normal in size, contour and echogenicity. Mild cortical atrophy is appreciated. No stone, solid mass lesion or hydronephrosis visualized. LEFT KIDNEY: Measures: 9.8 x 4.8 x 6.4 cm. Normal in size, contour and echogenicity. Mild cortical atrophy is appreciated. No stone, solid mass lesion or hydronephrosis visualized. OTHER FINDINGS: None. IMPRESSION: Limited bilateral cortical atrophy. However, no cystic or solid renal parenchymal mass identified or urolithiasis. No obstructive uropathy bilaterally.
--- NOTE | 2018-04-07 15:47 | PN ---
DATE: 04/07/2018 LOCATION: The patient is in room 570, bed 1. SUBJECTIVE: No adverse events were documented. Overnight nurse's notes were reviewed. PHYSICAL EXAMINATION: VITAL SIGNS: T-max 98.2, pulse 71, blood pressure 145/82, respirations 20, O2 sat 99%. HEAD: Normocephalic and atraumatic. HEENT: Shows pinkish pale conjunctivae. Anicteric sclerae, dry oral mucosa. No neck rigidity. CHEST: Shows kyphosis. LUNGS: Shows no rales, crackles or wheezing. CARDIOVASCULAR: S1 and S2, regular rhythm. No audible murmur, gallop or rub. ABDOMEN: Soft. Positive bowel sounds. No palpable hepatosplenomegaly noted. GENITALIA: Male. RECTAL: Deferred. EXTREMITIES: Shows positive right foot toe amputation, positive dressing. Positive swelling of the forefoot noted of the plantar and the dorsal aspects. Left foot also has deformity of the toe and a possible hallux valgus deformity. Positive chronic skin changes noted of the lower extremities bilaterally. No pitting edema noted. Both feet and legs are warm to touch. Pulses are palpable 1+ in bilateral lower extremities. Motor strength is 5/5. Gait examination is not tested. NEUROLOGICAL: The patient is alert, awake, oriented x3. Cranial nerves II through XII grossly intact. Gait examination is not tested. Psychiatric examination is negative. DIAGNOSTICS: From 2017; WBC 4.8, hemoglobin and hematocrit 10.1 and 31.1, platelet 147. Sodium 130, potassium 4.7, chloride 107, CO2 of 28, BUN 21, creatinine 1.8, glucose 116, calcium 9, phosphorus 3, magnesium 1.9, uric acid 6.8, LDL 96, cholesterol 152, HDL 42. Fructosamine is elevated. Arterial Doppler of the lower extremity shows the right ankle brachial index 1.11, left MOHIT of 0.34. IMPRESSION: 1. Right foot right first metatarsal and right foot osteomyelitis with marrow edema and possible right foot first metatarsal abscess and cellulitis, nonhealing diabetic ulcer and early osteomyelitis. 2. Normocytic anemia versus anemia of chronic disease versus iron-deficiency anemia. 3. Acute kidney injury (resolving). 4. Hyperlipidemia with elevated low-density lipoproteins. 5. . 6. History of diabetes mellitus and history of insulin-requiring diabetes mellitus, off insulin. 7. History of hypertension. 8. History of osteomyelitis. 9. History of right foot great toe amputation. 10. Nonhealing right foot diabetic ulceration and abscess. 11. Possible gait dysfunction. 1. Early right foot osteomyelitis of the residual first metatarsal bone with severe diabetic neuropathy and Charcot destructive changes. 2. Extensive deep tissue diffuse inflammatory changes of the right forefoot with degenerative joint disease of the metatarsal phalangeal joint of the second and the third toe. 3. Right foot first toe amputation with severe inflammatory soft tissue reaction and abscess formation at the amputation stump. 4. Right foot metatarsal bone reactive marrow edema with evidence of osteomyelitis of the first metatarsal bone. 5. Degenerative joint disease of the tarsometatarsal articulation, degenerative cyst and osteochondral ulcer and diabetic neuropathy and Charcot right foot. 6. Extensive deep tissue diffuse edema inflammatory changes at the sole of the foot, under the second and third metatarsal. 7. Degenerative joint disease of the metatarsophalangeal joint of the second and the third toe. 8. Right foot big toe amputation with degenerative joint disease of the forefoot and the midfoot. 9. Hypertension. 10. Normocytic anemia with anemia of chronic disease. 11. Granulocytosis. 12. Elevated erythrocyte sedimentation rate of greater than 50. 13. Acute kidney injury with chronic kidney disease stage III. 14. Hyperglycemia. 15. Hyperlipidemia. 16. History of osteomyelitis of the right foot and right great toe amputation. 17. History of insulin-requiring diabetes mellitus, history of hypertension, history of anemia. PLAN: At this time, the patient is to be continued on insulin sliding scale coverage. We are awaiting for the hemoglobin A1c. The patient's IV fluid will be continued. The patient's creatinine has improved and BUN has normalized. The patient will be started on low-dose statin. The patient at present is to be continued on broad-spectrum antibiotic, which the patient has already received in the last 24 hours. The patient has received two doses of Teflaro. The patient has received a dose of Zosyn in the emergency room and a dose of vancomycin IV in the emergency room. The patient will be continued on IV fluid. The patient will be continued on GI and DVT prophylaxis. The patient will be continued on antihypertensive. The patient is started on Lopressor 25 to 12. The patient is on aspirin, Lipitor, GI and DVT prophylaxis. The patient will be continued on IV antibiotics as per Infectious Disease's recommendation. The patient's consultations are Infectious Disease and Podiatry. At present, we are awaiting further management and recommendation by Podiatry and Infectious Disease. The patient's further management will be dependent upon the patient's clinical condition, hemodynamic status and as per the patient response to therapeutic intervention as per the patient's diagnostic test results and as per recommendation by Infectious Disease and Podiatry. Dictated and electronically signed, not read. Melo Rivero MD [facility] # [id number]
[2018-04-07] MEDS: POLYETHYLENE GLYCOL 3350 17 GM/Dose PACKET PO SCH (18:30)
--- NOTE | 2018-04-07 19:49 | CON ---
DATE: 04/07/2018 The patient is in room 570. CHIEF COMPLAINT: Right foot ulcer times several weeks. HISTORY OF PRESENT ILLNESS: This is a 62-year-old male, who has had a non-healing ulcer at the plantar aspect of the right foot, was given antibiotics as an outpatient, was on Levaquin which he stopped on Friday. At the plantar aspect of the right foot, the patient had amputation of the right big toe in 04/2016. He denies any fevers, any chills, any chest pain, any nausea or vomiting. PAST MEDICAL HISTORY: Significant for diabetes mellitus and osteomyelitis foot. PAST SURGICAL HISTORY: Significant for right big toe amputation in 04/2016. ALLERGIES: THE PATIENT HAS NO KNOWN ALLERGIES. MEDICATIONS AT HOME: Include the patient to be on Glucophage and Levaquin, which he stopped on Friday, yesterday. SOCIAL HISTORY: The patient is not a smoker. 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 No recent travel, and no exposure to pets. PHYSICAL EXAMINATION: VITAL SIGNS: Temperature is 98, blood pressure is 120/60, respiratory rate of 20, heart rate of 79. HEENT: Examination of HEENT is unremarkable. NECK: Supple. LUNGS: Have decreased breath sounds. HEART: Exam reveals normal S1, S2. ABDOMEN: Examination is soft, nontender. No rebound or guarding or masses. EXTREMITIES: Examination of the right plantar reveals an open clean ulcer, dry. No erythema, no discharge, and pulses are intact. LABORATORY EXAMINATION: Reveals a white count of 4.9, hemoglobin of 10, platelets of 165. Sed rate is 52. Coagulation is noted and chemistries reveal the patient has a BUN of 21, creatinine of 1.8, which was 2 yesterday. In the past, his creatinine has been normal up to 1. The patient has had a PSA done and urinalysis is unremarkable. Microbiology, corynebacterium in 2015, Providencia in 2015, group B strep in 2015, also had Gabriela. The patient had an x-ray of the foot, degenerative changes. MRI is pending. 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 At this point, since there is no tachycardia, no leukocytosis and no fevers, the patient has no evidence of sepsis, the current recommendations are to hold antibiotics until the procedure and debridement is performed for a deep tissue infection cultures and deep tissue and bone cultures. The patient is scheduled for possibly today or first thing tomorrow morning. We will hold off any antibiotics. I have advised the patient not to begin the Levaquin, trying to make diagnosis of bacteriological diagnosis of deep tissue, and we will make further recommendations. Case discussed with Dr. Rivero at length and he agrees to hold off any further antibiotics until after surgery. Tim Bob MD
[2018-04-07] MEDS: Levalbuterol 0.63 MG/3 ML Inhal Soln UD IH SCH (21:28)
[2018-04-08] MEDS: Levalbuterol 0.63 MG/3 ML Inhal Soln UD IH SCH ×4 (02:50→20:29)
[2018-04-08] MEDS: Pantoprazole 40 mg EC Tab PO SCH (05:52)
[2018-04-08 07:43] LABS: BASO # 0.01 K/mm3 (0.0-2.0); BASO % 0.3 % (0.0-3.0); EOS # 0.1 (0.0-0.7); EOS % 4.2 % (1.5-5.0); GRAN # 1.68 (1.4-6.5); GRAN % 50.1 % (50.0-68.0); HEMOGLOBIN 10.3 g/dL (14.0-18.0); LYMPH # 1.3 (1.2-3.4); LYMPH % 37.3 % (22.0-35.0); MEAN CELL VOLUME 86.5 fl (80.0-105.0); MEAN CORPUSCULAR HEMOGLOBIN 27.8 pg (25.0-35.0); MEAN CORPUSCULAR HGB CONC 32.2 g/dl (31.0-37.0); MEAN PLATELET VOLUME 9.7 fl (7.0-11.0); MONO # 0.3 (0.1-0.6); MONO % 8.1 % (1.0-6.0); RBC 3.7 10^6/uL (3.5-6.1); WHITE BLOOD COUNT 3.4 10^3/uL (4.5-11.0)
[2018-04-08] MEDS: Insulin Reg-LOW-Coverage SC SCH ×3 (07:51→22:10)
[2018-04-08 08:15] LABS: ALB/GLOB RATIO 1.1 (1.1-1.8); ALBUMIN 3.4 g/dL (3.0-4.8); BILIRUBIN,DIRECT 0.2 mg/dL (0.0-0.4); CALCIUM 8.9 mg/dL (8.4-10.5)
[2018-04-08] MEDS: POLYETHYLENE GLYCOL 3350 17 GM/Dose PACKET PO SCH ×2 (09:39→17:16)
--- NOTE | 2018-04-08 10:31 | CP.PCM.PN ---
<Kathi Streeter - Last Filed: 04/08/18 14:09> Subjective - Date & Time of Evaluation Date of Evaluation: 04/08/18 Time of Evaluation: 10:29 - Subjective Subjective: Podiatry progress note for Dr. Galan/Sarai, 62 year old male with past medical history of osteomyelitis of the foot, right great toe amputation in 2016, diabetes seen at bedside with right foot ulcer. Patient denies acute overnight events. Patient denies any pain sensation, drainage from wounds, fever, chills, nausea, vomiting, chest pain, shortness of breath or any other complaints at this time. Objective - Vital Signs/Intake and Output Vital Signs (last 24 hours): Temp Pulse Resp BP Pulse Ox 97.9 F 64 20 135/83 99 04/08/18 06:00 04/08/18 09:12 04/08/18 06:00 04/08/18 09:12 04/08/18 06:00 Intake and Output: 04/08/18 04/08/18 06:59 18:59 Intake Total 480 Balance 480 - Medications Medications: Current Medications Atorvastatin Calcium (Lipitor) 40 mg PO DIN [facility] Last Admin: 04/07/18 18:32 Dose: 40 mg Docusate Sodium (Colace) 100 mg PO TID [facility] Last Admin: 04/08/18 09:11 Dose: Not Given Heparin Sodium (Porcine) (Heparin) 5,000 units SC Q12 [facility]; Protocol Last Admin: 04/08/18 09:10 Dose: Not Given Sodium Chloride (Sodium Chloride 0.9%) 1,000 mls @ 100 mls/hr IV .Q10H [facility] Last Admin: 04/07/18 13:43 Dose: Not Given Insulin Human Regular (Humulin R Low) 0 units SC ACHS [facility]; Protocol Last Admin: 04/08/18 07:51 Dose: Not Given Levalbuterol HCl (Xopenex) 0.63 mg IH [id number] [facility] Last Admin: 04/08/18 07:47 Dose: Not Given Metoprolol Tartrate (Lopressor) 25 mg PO BID [facility] Last Admin: 04/08/18 09:12 Dose: 25 mg Pantoprazole Sodium (Protonix Ec Tab) 40 mg PO 0600 [facility] Last Admin: 04/08/18 05:52 Dose: 40 mg Polyethylene Glycol (Miralax) 17 gm PO BID [facility] Last Admin: 04/07/18 18:30 Dose: 17 gm - Labs Labs: 04/08/18 07:00 04/08/18 07:00 PT 13.6 SECONDS (9.4-12.5) H 04/06/18 11:00 INR 1.18 04/06/18 11:00 APTT 31.3 Seconds (25.1-36.5) 04/06/18 11:00 - Constitutional Appears: Well, Non-toxic, No Acute Distress - Head Exam Head Exam: ATRAUMATIC, NORMOCEPHALIC - Extremities Exam Additional comments: Left lower extremity: vascular: DP/PT pulses palpable, CFT <3 secs x 4, tg warm to warm, no erythema noted, minimal edema noted neuro: protective sensation intact derm: 1 cm x 1cm wound noted on the plantar aspect of submet 1, probes to bone, no malodor, tracking and tunneling noted, no active drainage, no erythema noted, minimal edema suleman wound. no other open lesions noted ortho: no pain on palpation to the area - Neurological Exam Neurological Exam: Alert, Awake, Oriented x3 - Psychiatric Exam Psychiatric exam: Normal Affect - Skin Skin Exam: Normal Color Assessment and Plan - Assessment and Plan (Free Text) Assessment: 62 yo male seen and evaluated for left foot wound; osteomyelitis of the distal tip of the first metatarsal Plan: Patient seen and evaluated Chart, labs and vitals reviewed; absent leukocytosis and afebrile Wound cleansed with saline Dressed with maxorb and optifoam MRI of the lower extremity ordered hetergenous soft tissue mass adjacent to am putated first met possible for abscess or hematoma. Some marrow edema at the distal margin of the 1st metatarsal amputation. x-ray of the lower extremity ordered; midfoot degenerative changes MOHIT/PVR ordered; relatively normal MOHIT/PVR Podiatry plan: wound debridement with resection of the metatarsal (04/09) at 7:30 am; please provide medical clearance Patient will be NPO past midnight; heparin on hold. Podiatry will continue to follow the patient <Mable Galan - Last Filed: 04/11/18 13:58> Objective - Vital Signs/Intake and Output Vital Signs (last 24 hours): Temp Pulse Resp BP Pulse Ox 98.3 F 65 20 125/76 98 04/11/18 07:30 11/03/18 09:29 04/11/18 07:30 04/11/18 09:29 04/11/18 07:30 Intake and Output: 04/11/18 04/11/18 06:59 18:59 Intake Total 240 Balance 240 - Medications Medications: Current Medications Acetaminophen (Tylenol 325mg Tab) 650 mg PO Q6H PRN PRN Reason: Pain, Mild (1-3) Atorvastatin Calcium (Lipitor) 40 mg PO DIN [facility] Last Admin: 04/10/18 17:19 Dose: 40 mg Docusate Sodium (Colace) 100 mg PO TID [facility] Last Admin: 04/11/18 09:28 Dose: Not Given Heparin Sodium (Porcine) (Heparin) 5,000 units SC Q12 [facility]; Protocol Last Admin: 04/08/18 09:10 Dose: Not Given Sodium Chloride (Sodium Chloride 0.9%) 1,000 mls @ 100 mls/hr IV .Q10H [facility] Last Admin: 04/11/18 04:33 Dose: Not Given Iron Sucrose 200 mg/ Sodium (Chloride) 110 mls @ 110 mls/hr IVPB DAILY [facility] Stop: 04/12/18 10:59 Last Admin: 04/11/18 10:49 Dose: 110 mls/hr Ceftaroline Fosamil 600 mg/ (Sodium Chloride) 100 mls @ 100 mls/hr IVPB Q12 [facility]; Protocol Stop: 04/18/18 14:01 Last Admin: 04/11/18 09:29 Dose: 100 mls/hr Insulin Human Regular (Humulin R Low) 0 units SC ACHS [facility]; Protocol Last Admin: 04/11/18 10:48 Dose: Not Given Levalbuterol HCl (Xopenex) 0.63 mg IH [id number] [facility] Last Admin: 04/11/18 13:37 Dose: Not Given Metoprolol Tartrate (Lopressor) 25 mg PO BID [facility] Last Admin: 04/11/18 09:29 Dose: 25 mg Oxycodone/Acetaminophen (Percocet 5/325 Mg Tab) 1 tab PO Q6H PRN PRN Reason: Pain, moderate (4-7) Stop: 04/12/18 09:44 Oxycodone/Acetaminophen (Percocet 5/325 Mg Tab) 2 tab PO Q6H PRN PRN Reason: Pain, severe (8-10) Stop: 04/12/18 09:44 Pantoprazole Sodium (Protonix Ec Tab) 40 mg PO 0600 [facility] Last Admin: 04/11/18 05:53 Dose: 40 mg Polyethylene Glycol (Miralax) 17 gm PO BID [facility] Last Admin: 04/11/18 10:48 Dose: Not Given - Labs Labs: 04/10/18 07:00 04/10/18 07:00 PT 13.6 SECONDS (9.4-12.5) H 04/06/18 11:00 INR 1.18 04/06/18 11:00 APTT 31.3 Seconds (25.1-36.5) 04/06/18 11:00 Attending/Attestation - Attestation I have personally seen and examined this patient.: Yes I have fully participated in the care of the patient.: Yes I have reviewed all pertinent clinical information, including history, physical exam and plan: Yes
--- NOTE | 2018-04-08 11:16 | CARD ---
APPROVED REPORT Date of service: 04/08/2018 EKG Measurement Heart [id number] <Conclusion> Normal sinus rhythm Nonspecific T wave abnormality, consider lateral wall ischemia Abnormal ECG
--- NOTE | 2018-04-08 11:54 | PN ---
DATE: 04/08/2018 SUBJECTIVE: The patient is in bed in no acute distress, nontoxic. PHYSICAL EXAMINATION: VITAL SIGNS: On exam, temperature is 97, blood pressure is 130/80, respiratory rate 20, heart rate of 64. HEENT: Examination of HEENT is unremarkable. NECK: Supple. LUNGS: Have decreased breath sounds. HEART: Normal S1, S2. ABDOMEN: Soft. LABORATORY EXAMINATION: Reveals a white count of 3.4, hemoglobin of 10. BUN of 16, creatinine of 1.6 and urinalysis is noted and serology is negative. Microbiology is noted. Foot culture is pending, however, the blood culture is negative. Review of orders reveals the patient to be off of antibiotics. 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 We will continue the OR cultures. We will continue off of antibiotics. We will follow with you. Tim Bob MD
[2018-04-08 13:49] LABS: GLYCOMARK(R) 8.4 mcg/mL (7.3-36.6)
--- NOTE | 2018-04-08 14:57 | CARD ---
APPROVED REPORT Date of service: 04/08/2018 EXAM: Two-dimensional and M-mode echocardiogram with Doppler and color Doppler. INDICATION Pre-Op 2D DIMENSIONS Left Atrium (2D)4.2 (1.6-4.0cm)IVSd1.4 (0.7-1.1cm) LVDd4.0 (3.9-5.9cm)PWd1.4 (0.7-1.1cm) LVDs2.9 (2.5-4.0cm)FS (%) 28.3 % LVEF (%)55.3 (>50%) M-Mode DIMENSIONS Aortic Root2.30 (2.2-3.7cm)Aortic Cusp Exc.1.40 (1.5-2.0cm) Aortic Valve AoV Peak Akltqmbr518.0cm/Sylvester Peak GR.5mmHg Mitral Valve MV E Cesubdtb25.8cm/sMV A Qukbphyt07.5cm/sE/A ratio0.8 TDI E/Lateral E'0.0E/Medial E'0.0 Tricuspid Valve TR Peak Xrqqzovj063pi/sRAP [id number] Peak Gr.15mmHg [id number] LEFT VENTRICLE There is mild concentric left ventricular hypertrophy. The left ventricular function is normal. The left ventricular ejection fraction is within the normal range. RIGHT VENTRICLE The right ventricle is normal size. ATRIA The left atrium is mildly dilated. The right atrium size is normal. AORTIC VALVE The aortic valve is thickened but opens well. MITRAL VALVE The mitral valve is thickened but opens well. Mitral regurgitation is mild to moderate. TRICUSPID VALVE The tricuspid valve leaflets are thickened , but open well. There is trace to mild tricuspid regurgitation. There is no pulmonary hypertension. PULMONIC VALVE The pulmonic valve is not well visualized. PERICARDIAL EFFUSION There is no pericardial effusion. <Conclusion> LVH with good LV function Dilated LA Mild to moderate MR Mild TR No pulmonary hypertension
[2018-04-08] MEDS: Sodium Chloride 0.9% 1,000 ML IV SCH (22:01)
--- NOTE | 2018-04-08 22:05 | PN ---
DATE: 04/08/2018 SUBJECTIVE: The patient is seen lying in the bed in room 570, bed two. The patient's overnight nurse's notes were reviewed. No adverse events were documented. PHYSICAL EXAMINATION: OVERNIGHT VITAL SIGNS: T-max 97.9, pulse 64/65, blood pressure 135/83, respiration 20, O2 sat 99%. GENERAL: The patient is seen lying in the bed. HEAD: Normocephalic, atraumatic. HEENT: Shows pinkish pale conjunctivae. Anicteric sclerae. No oropharyngeal lesion. No neck rigidity. CHEST: Kyphosis. LUNGS: Shows no rales, crackles, or wheezing. CARDIOVASCULAR: S1, S2. Regular rhythm. Questionable soft systolic murmur left sternal border, right second intercostal space, left second intercostal space. ABDOMEN: Soft. Positive bowel sounds. GENITALIA: Male. RECTAL: Deferred. EXTREMITIES: Shows no pitting edema, no calf tenderness, no Efrain's signs. No swelling. Positive right foot toe area dressing. Positive plantar area swelling of the right foot. Pulses are palpable but decreased in both feet, and legs are warm to touch. MUSCULOSKELETAL: Shows a body mass index of 24.3. NEUROLOGIC: The patient is alert, awake, oriented x3. Cranial nerves II-XII limited. Gait examination is not tested. LABORATORY DATA: On 04/08/2018, WBC 3.4, hemoglobin/hematocrit 10.3/32.0, platelet 138. Sodium 140, potassium 4.4, chloride 107, CO2 29, BUN 16, creatinine is down to 1.6 from 2.0. GFR 53, glucose 129, hemoglobin A1c is 8.4. Fructosamine is 344. Calcium 8.9, phosphorus 3.1, magnesium 2.0. LFTs are normal. Stool occult blood is negative. RPR/HIV negative. Urine cultures, wound cultures, blood cultures negative so far. DIAGNOSTIC DATA: Renal ultrasound results were noted which shows bilateral renal cortical atrophy. The patient's EKG was noted. Echocardiogram results were reviewed. CURRENT MEDICATIONS: Colace 100 mg three times a day, heparin 5000 subcu every 12 which is on hold, regular insulin sliding scale coverage a.c. and h.s., Venofer 200 mg IV daily five doses, Lipitor 40 mg daily, Lopressor 25 mg twice a day, MiraLAX 17 g twice a day, Protonix 40 mg daily IV fluid 0.9 normal saline at 100 mL an hour, Xopenex nebulizer 0.63 mg every 6 hours. IMPRESSION AND PLAN: 1. Right foot first metatarsal area nonhealing diabetic ulceration with heterogeneous soft tissue mass at the plantar aspect of the foot adjacent to the amputated first metatarsal, suspicious for abscess. 2. First metatarsal amputation area marrow edema, suspicious for osteomyelitis. 3. 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 4. Hypertension. 5. Leukopenia. 6. Normocytic anemia. 7. Elevated erythrocyte sedimentation rate of 52. 8. Acute kidney injury with underlying chronic kidney disease, stage III. 9. Uncontrolled diabetes mellitus with hemoglobin A1c of 8.4 and elevated fructosamine of 344. 10. Possible iron deficiency, decreased iron saturation and decreased ferritin. 11. Elevated C-reactive protein. 12. Right middle lobe reticulonodular infiltrate pattern of the right middle lobe and also right upper lobe. 13. Tiny subpleural lingular nodule. 14. Right upper lobe reticulonodular changes. 15. Right upper, right middle, right lower lobe reticulonodular infiltrate pattern. 16. Fecal stasis and retention. 17. Small umbilical hernia. 18. Bilateral renal cortical atrophy. 19. Resolving acute kidney injury. 20. Nonspecific T-wave abnormalities, questionable lateral ischemic changes on the EKG. 21. Left ventricular ejection fraction of 55%. 22. Mild concentric left ventricular hypertrophy. 23. Mildly dilated left atrium. 24. Moderate mitral regurgitation with thickened mitral valve. 25. Thickened tricuspid valve with mild tricuspid regurgitation. 26. Osteomyelitis of the distal tip of the first metatarsal. 27. Possible abscess of the amputated first metatarsal with marrow edema of the first metatarsal amputation. 1. Right foot right first metatarsal and right foot osteomyelitis with marrow edema and possible right foot first metatarsal abscess and cellulitis, nonhealing diabetic ulcer and early osteomyelitis. 2. Normocytic anemia versus anemia of chronic disease versus iron-deficiency anemia. 3. Acute kidney injury (resolving). 4. Hyperlipidemia with elevated low-density lipoproteins. 6. History of diabetes mellitus and history of insulin-requiring diabetes mellitus, off insulin. 7. History of hypertension. 8. History of osteomyelitis. 9. History of right foot great toe amputation. 10. Nonhealing right foot diabetic ulceration and abscess. 11. Possible gait dysfunction. 1. Early right foot osteomyelitis of the residual first metatarsal bone with severe diabetic neuropathy and Charcot destructive changes. 2. Extensive deep tissue diffuse inflammatory changes of the right forefoot with degenerative joint disease of the metatarsal phalangeal joint of the second and the third toe. 3. Right foot first toe amputation with severe inflammatory soft tissue reaction and abscess formation at the amputation stump. 4. Right foot metatarsal bone reactive marrow edema with evidence of osteomyelitis of the first metatarsal bone. 5. Degenerative joint disease of the tarsometatarsal articulation, degenerative cyst and osteochondral ulcer and diabetic neuropathy and Charcot right foot. 6. Extensive deep tissue diffuse edema inflammatory changes at the sole of the foot, under the second and third metatarsal. 7. Degenerative joint disease of the metatarsophalangeal joint of the second and the third toe. 8. Right foot big toe amputation with degenerative joint disease of the forefoot and the midfoot. 9. Hypertension. 10. Normocytic anemia with anemia of chronic disease. 11. Granulocytosis. 12. Elevated erythrocyte sedimentation rate of greater than 50. 13. Acute kidney injury with chronic kidney disease stage III. 14. Hyperglycemia. 15. Hyperlipidemia. 16. History of osteomyelitis of the right foot and right great toe amputation. 17. History of insulin-requiring diabetes mellitus, history of hypertension, history of anemia. PLAN: At this time, the patient is for wound debridement and resection of the first metatarsal. The patient has been cleared by Cardiology. The patient was seen by Cardiology this afternoon by Dr. Warren. The patient has been started on IV Venofer because of iron deficiency. The patient has been ordered flow cytometry for the morning for evaluation of anemia. The patient has been ordered serial labs. Current consultation is Podiatry, Infectious Disease, Cardiology. The patient's case is referred for school vocational educator evaluation. Chest PT and incentive spirometry ordered, out of bed with nonweightbearing of the right foot ordered, occupational therapy and physical therapy ordered. The patient updated about his condition, diagnosis, treatment plan, management plan at length and all questions concerned answered, which he acknowledged and understood. The patient will undergo surgical intervention by Podiatry in the morning. The patient's further management will be dependent upon the surgical intervention and on the wound cultures from the operating room. Infectious Disease has recommended to hold off the antibiotics at present, awaiting wound cultures from operating room which the patient was explained. Dictated and electronically signed, not read. Melo Rivero MD [id number]
--- NOTE | 2018-04-08 22:12 | CON ---
DATE: 04/08/2018 HISTORY OF PRESENT ILLNESS: The patient is a 62-year-old male with a history of new-onset diabetes mellitus, who presents with a foot ulcer that is not healed with home antibiotics. He is admitted for debridement. PAST MEDICAL HISTORY: Free of hypertension, no hypercholesterolemia. No previous cardiac history. The patient denies chest pain, denies shortness of breath. He has never had cardiac issues in the past. SOCIAL HISTORY: No smoking. REVIEW OF SYSTEMS: A 14-point review of systems is reviewed in detail. No angina, no shortness of breath. No edema in lower extremities. No claudication. PHYSICAL EXAMINATION VITAL SIGNS: Blood pressure 135/83, heart rate in the 60s. NECK: Negative JVD. LUNGS: Without rales. HEART: S1, S2. EXTREMITIES: A bandage without edema. DIAGNOSTIC DATA: EKG is unremarkable. LABORATORY DATA: Hemoglobin is 10.3. Chemistries, BUN and creatinine are 16 and 1.6. The glucose is 129. IMPRESSION: 1. Foot ulcers. 2. No active and acute cardiac issues. 3. Diabetes mellitus. 4. Mild renal insufficiency. 5. Mild hypertension. 6. Anemia. PLAN: Given these findings, there are no cardiac contraindications to his planned surgery. After his debridement, the patient should undergo a thorough cardiac evaluation to rule out coronary artery disease given his risk factors. Ciro Warren MD
[2018-04-09] MEDS: Levalbuterol 0.63 MG/3 ML Inhal Soln UD IH SCH ×4 (01:53→20:44)
[2018-04-09] MEDS: Pantoprazole 40 mg EC Tab PO SCH (06:59)
[2018-04-09 07:10] LABS: BASO # 0.01 K/mm3 (0.0-2.0); BASO % 0.3 % (0.0-3.0); EOS # 0.2 (0.0-0.7); EOS % 4.6 % (1.5-5.0); GRAN # 1.75 (1.4-6.5); GRAN % 44.2 % (50.0-68.0); HEMOGLOBIN 12.1 g/dL (14.0-18.0); LYMPH # 1.8 (1.2-3.4); LYMPH % 44.6 % (22.0-35.0); MEAN CELL VOLUME 86.9 fl (80.0-105.0); MEAN CORPUSCULAR HEMOGLOBIN 28.3 pg (25.0-35.0); MEAN CORPUSCULAR HGB CONC 32.5 g/dl (31.0-37.0); MEAN PLATELET VOLUME 9.6 fl (7.0-11.0); MONO # 0.3 (0.1-0.6); MONO % 6.3 % (1.0-6.0); RBC 4.28 10^6/uL (3.5-6.1); RED CELL DISTRIBUTION WIDTH 14.2 % (11.5-14.5)
[2018-04-09] MEDS ORDERED: Lidocaine 2% Inj (20ml) ONE (07:19)
[2018-04-09 07:26] LABS: ALB/GLOB RATIO 1.1 (1.1-1.8); ALBUMIN 3.9 g/dL (3.0-4.8); BILIRUBIN,DIRECT 0.3 mg/dL (0.0-0.4); CALCIUM 9.1 mg/dL (8.4-10.5)
[2018-04-09] MEDS ORDERED: Gentamicin 80 mg/2mL Inj. ONE (07:34)
[2018-04-09] MEDS ORDERED: Midazolam 2 MG/2 ML VIAL ONE (07:49)
[2018-04-09] MEDS ORDERED: Lidocaine PF 2% (5 ml) Inj (For Cardiac Arrhy) ONE (07:49)
[2018-04-09] MEDS ORDERED: Propofol 10 mg/ml Inj (20 ML) ONE ×2 (07:49→08:38)
[2018-04-09] MEDS ORDERED: HYDROmorphone 0.5 mg/0.5 ml ISec IVP PRN (09:41)
--- NOTE | 2018-04-09 09:42 | PCM.SURG1 ---
Surgeon's Initial Post Op Note - Surgeon's Notes Surgeon: Mable Galan DPM Count Room Clerk: Kathi Streeter, PGY1 Type of Anesthesia: IV Sedation, Local Anesthesia Administered By: Dr. carrie MD Pre-Operative Diagnosis: right first metatarsal osteomyelitis Operative Findings: see dictation. injectibles: 15 cc of 2% Lidocaine plain. materials: 3-0 vicryl, 4-0 nylon Post-Operative Diagnosis: same Operation Performed: right first metatarsal partial resection Specimen/Specimens Removed: pathology: first metatarsal right. Deep wound cultures Estimated Blood Loss: EBL {In ML}: 30 Blood Products Given: N/A Drains Used: No Drains Post-Op Condition: Good Date of Surgery/Procedure: 04/09/18 Time of Surgery/Procedure: 09:42
[2018-04-09] MEDS ORDERED: Oxycodone/Acetaminophen 5/325 mg Tab PO PRN ×2 (09:43)
[2018-04-09] MEDS ORDERED: Lactated Ringer's 1,000 ML IV SCH (09:45)
[2018-04-09] MEDS ORDERED: Oxycodone/Acetaminophen 5/325 mg Tab ONE (10:46)
--- NOTE | 2018-04-09 11:11 | PN ---
DATE: 04/09/2018 CARDIOLOGY FOLLOWUP SUBJECTIVE: The patient tolerated surgery without issues. PHYSICAL EXAMINATION: VITAL SIGNS: Blood pressure is 143/90, the heart rates in the 70s. NECK: Negative JVD. LUNGS: Without rales. HEART: Reveals S1, S2. EXTREMITIES: Bandaged. LABORATORY DATA: Noted. The creatinine is 1.7. Hemoglobin is 12.1. IMPRESSION: 1. Foot ulcers. 2. Baseline renal insufficiency. 3. Diabetes mellitus. 4. Hypertension. 5. Anemia. Given these findings, the patient is hemodynamically stable post surgery. Ciro Warren MD
--- NOTE | 2018-04-09 11:15 | RAD ---
Date of service: 04/09/2018 PROCEDURE: Right Foot Radiographs. HISTORY: s/p first right metatarsal resection COMPARISON: Right foot radiographs 04/06/2018. FINDINGS: BONES: Patient is now seen to be status post additional segmental transmetatarsal amputation of the 1st metatarsal bone with heterogeneous density in the soft tissues distal to it suggestive of surgical packing. Soft tissues are otherwise unremarkable. Advanced degenerative changes seen throughout the midfoot and remain mild at the forefoot and hindfoot once again. No subluxation or dislocation. No erosive changes are related to the bones of the right foot including the residual right 1st metatarsal bone. Old healed fractures of at least the 2nd and 3rd metatarsal bones is appreciated proximally with advanced osteoarthritis at the middle and lateral cuneiform as well as cuboid articulations with the 2nd through 5th metatarsal bones. JOINTS: As above. SOFT TISSUES: As above. OTHER FINDINGS: None. IMPRESSION: Interval segmental transmetatarsal amputation further at the proximal segment of right 1st metatarsal bone with postoperative changes identified. Degenerative changes are reiterated at the right foot as discussed above.
[2018-04-09] MEDS: POLYETHYLENE GLYCOL 3350 17 GM/Dose PACKET PO SCH ×2 (11:27→17:31)
[2018-04-09] MEDS: Insulin Reg-LOW-Coverage SC SCH ×3 (11:28→21:27)
[2018-04-09] MEDS: Ceftaroline 600 MG in Sodium Chloride 0.9% 100 ML IVPB SCH (15:14)
--- NOTE | 2018-04-09 17:08 | PN ---
DATE: 04/09/2018 SUBJECTIVE: The patient is in bed, in no acute distress, nontoxic. PHYSICAL EXAMINATION: VITAL SIGNS: The patient's temperature is 98, blood pressure is 130/80, respiratory rate of 18. HEENT: Unremarkable. NECK: Supple. LUNGS: Have decreased breath sounds. HEART: Normal S1, S2. ABDOMINAL: Soft, nontender. LABORATORY EXAMINATION: Reveals the patient's white count is 4, hemoglobin of 12 and platelets of 173. Stools are noted. Chemistries are noted. HIV is negative. RPR is negative. Microbiology reveals the blood cultures are negative. Urine cultures are negative. There is yeast from the wound culture. The patient is taken to the OR. ASSESSMENT AND PLAN: A 62-year-old. 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 The patient is to go to the OR today and resection of metatarsal partial right first is what is planned for right foot first metatarsal osteomyelitis. We will start the patient empirically on Teflaro since the patient's creatinine is 1.7 and pending panculture results. We will cover methicillin-resistant Staphylococcus aureus; however, it does not cover Pseudomonas pending deep tissue culture. We will start a dose of empiric antibiotic now. We will follow with you pending OR culture results. Tim Bob MD
[2018-04-09] MEDS: Sodium Chloride 0.9% 1,000 ML IV SCH (21:30)
--- NOTE | 2018-04-09 22:17 | PN ---
DATE: 04/09/2018 SUBJECTIVE : The patient is seen and examined in recovery room. The patient is seen lying in the recovery room. The patient is alert, awake, responsive. Overnight nurse's notes were reviewed. PHYSICAL EXAMINATION: VITAL SIGNS: In the last 12-24 hours: T max is 98.2; heart rate 59, 68, 68, 75, 60; blood pressure ranging in the last 24 hours 122/77, 135/83, 151/86. Transiently blood pressure was 176/105, down to 123/79, 134/78, 136/77, 139/81. Respirations 15-18, O2 sat is 97%-99%. GENERAL: The patient is seen lying in the in the bed, in the recovery room. HEAD: Normocephalic, atraumatic. EENT: Shows pinkish pale conjunctivae. Anicteric sclerae, dry oral mucosa. No neck rigidity. CHEST: Symmetrical. LUNGS: Shows positive rhonchi bilaterally, right more than the left. CARDIOVASCULAR: S1 and S2, regular rhythm. Questionable soft systolic murmur in left sternal border, right second intercostal space, left second intercostal space. ABDOMEN: Soft. Positive bowel sounds. No palpable hepatosplenomegaly or organomegaly noted. Positive bowel sounds. No guarding, rigidity, or rebound tenderness. GENITALIA: Male. RECTAL: Deferred. EXTREMITIES: Shows positive dressing and Elias wrap of the right lower extremity. VASCULAR: Palpable pulses 1 +. NEUROLOGIC: The patient is alert, awake, oriented x3. Cranial nerves II-XII limited. Gait examination is not tested. DIAGNOSTICS: On 04/09/2018, WBC 4, hemoglobin and hematocrit 12.1 and 37.2, platelet 173. Sodium 141, potassium 4.3, chloride 107, CO2 of 28, anion gap 10, BUN 16, creatinine 1.7, glucose 135, calcium 9.1, phosphorus 3, magnesium 2. LFTs are within normal limits. Fingerstick blood sugar 203, 111, 135, 123, 107, 170. Liver function tests are within normal limit. Stool occult blood was negative. The patient's operative report was reviewed. The patient underwent partial right first metatarsal resection for the right foot first metatarsal osteomyelitis. Next, the patient's postoperative foot x-ray was reviewed which shows transmetatarsal amputation of the first metatarsal bone, showing advanced degenerative joint disease throughout the midfoot and the forefoot and hind foot. Old healed fracture of the second and the third metatarsal bone is appreciated with advanced osteoarthritis noted. IMPRESSION: 1. Right foot first metatarsal osteomyelitis. 2. Status post right foot first metatarsal partial resection for right foot first metatarsal osteomyelitis and possible abscess. 3. Leukopenia. 4. Possible iron-deficiency anemia. 5. Slow resolving acute kidney injury. 6. Gait dysfunction. 7. Deconditioning. 8. Uncontrolled diabetes mellitus with hemoglobin A1c of 8.8. 9. Hypertension. 10. History of osteomyelitis of the right foot great toe. 11. Osteoarthritis of the right foot and right foot metatarsal and diffuse degenerative joint disease of the right foot. 12. Advanced degenerative joint disease of the right mid foot, forefoot, and hind foot. 13. Right foot old healed fracture of the second and third metatarsal bone. 14. Advanced osteoarthritis of the middle and the lateral cuneiform bone. 15. Questionable anemia of chronic disease. 16. Left ventricular ejection fraction of 55%. 17. Mild concentric left ventricle hypertrophy and hypertensive cardiovascular disease. 18. Thickened aortic valve. 19. Moderate mitral regurgitation with thickened mitral valve. 20. Thickened tricuspid valve with mild tricuspid regurgitation. 21. Hyperlipidemia. 22. Right upper lobe, right middle lobe, and right lower lobe reticular nodular changes with lingular subpleural nodule. 23. Clonic fecal stasis, fecal retention, and constipation. 24. Small umbilical hernia. PLAN: At this time, the patient will be continued on medications as per the MAR with close infectious disease and podiatry followup in cardiology followup. The patient is started on Teflaro 600 mg IV every 12 hours by Infectious Disease. The patient is on Colace 100 mg three times a day, heparin 5000 subcu every 12 hours, insulin regular dose sliding scale coverage, IV Venofer 200 mg IV daily for five doses, Lipitor 40 mg daily, MiraLax 17 g twice a day, Percocet 5/325 one to two tablets every 6 hours p.r.n. for pain, Protonix 40 mg daily for GI prophylaxis, IV fluid 0.9 normal saline. The patient is on Lopressor 25 mg every 12 hours, Xopenex nebulizer 0.63 mg every 6 hours, Tylenol p.r.n. The patient's further management will be dependent upon the patient's clinical condition, hemodynamic status, and as per the patient response to therapeutic intervention, as per the patient's diagnostic test results and as per recommendation by Infectious Disease and Podiatry. The patient's case will be referred to Transitional Care Unit evaluation if the patient accepted. Dictated and electronically signed, not read. Melo Rivero MD
[2018-04-10] MEDS: Pantoprazole 40 mg EC Tab PO SCH ×2 (05:42→09:18)
[2018-04-10 07:24] LABS: BASO # 0.01 K/mm3 (0.0-2.0); BASO % 0.2 % (0.0-3.0); EOS # 0.2 (0.0-0.7); GRAN # 3.57 (1.4-6.5); GRAN % 63.7 % (50.0-68.0); HEMOGLOBIN 10.4 g/dL (14.0-18.0); LYMPH # 1.5 (1.2-3.4); LYMPH % 26.1 % (22.0-35.0); MEAN CELL VOLUME 86.4 fl (80.0-105.0); MEAN CORPUSCULAR HEMOGLOBIN 28.2 pg (25.0-35.0); MEAN CORPUSCULAR HGB CONC 32.6 g/dl (31.0-37.0); MEAN PLATELET VOLUME 9.6 fl (7.0-11.0); MONO # 0.4 (0.1-0.6); RBC 3.69 10^6/uL (3.5-6.1); RED CELL DISTRIBUTION WIDTH 14.1 % (11.5-14.5); WHITE BLOOD COUNT 5.6 10^3/uL (4.5-11.0)
[2018-04-10] MEDS: Insulin Reg-LOW-Coverage SC SCH ×4 (07:33→21:24)
[2018-04-10 07:41] LABS: ALB/GLOB RATIO 1.2 (1.1-1.8); ALBUMIN 3.6 g/dL (3.0-4.8)
[2018-04-10] MEDS: Levalbuterol 0.63 MG/3 ML Inhal Soln UD IH SCH ×3 (07:48→19:34)
[2018-04-10] MEDS: Sodium Chloride 0.9% 1,000 ML IV SCH ×2 (08:34→20:18)
[2018-04-10] MEDS: Ceftaroline 600 MG in Sodium Chloride 0.9% 100 ML IVPB SCH ×2 (09:20→21:31)
[2018-04-10] MEDS: POLYETHYLENE GLYCOL 3350 17 GM/Dose PACKET PO SCH ×2 (09:21→17:19)
--- NOTE | 2018-04-10 09:50 | CP.PCM.PN ---
<Kathi Streeter - Last Filed: 04/10/18 11:45> Subjective - Date & Time of Evaluation Date of Evaluation: 04/10/18 Time of Evaluation: 09:46 - Subjective Subjective: Podiatry progress note for Dr. Galan/Sarai, 62 year old male with past medical history of osteomyelitis of the foot, right great toe amputation in 2016, diabetes seen at bedside 1 day s/p right first metatarsal resection and wound debridement. Patient denies acute overnight events. States physical therapy came to see him this morning. Patient denies any pain sensation, drainage from wounds, fever, chills, nausea, vomiting, chest pain, shortness of breath or any other complaints at this time. Objective - Vital Signs/Intake and Output Vital Signs (last 24 hours): Temp Pulse Resp BP Pulse Ox 98.2 F 75 20 121/62 98 04/10/18 08:09 04/10/18 09:18 04/10/18 08:09 04/10/18 09:18 04/10/18 08:09 Intake and Output: 04/10/18 04/10/18 06:59 18:59 Intake Total 720 Output Total 453 Balance 267 - Medications Medications: Current Medications Acetaminophen (Tylenol 325mg Tab) 650 mg PO Q6H PRN PRN Reason: Pain, Mild (1-3) Atorvastatin Calcium (Lipitor) 40 mg PO DIN [facility] Last Admin: 04/09/18 17:30 Dose: 40 mg Docusate Sodium (Colace) 100 mg PO TID [facility] Last Admin: 04/10/18 09:17 Dose: 100 mg Heparin Sodium (Porcine) (Heparin) 5,000 units SC Q12 [facility]; Protocol Last Admin: 04/08/18 09:10 Dose: Not Given Sodium Chloride (Sodium Chloride 0.9%) 1,000 mls @ 100 mls/hr IV .Q10H [facility] Last Admin: 04/10/18 08:34 Dose: Not Given Iron Sucrose 200 mg/ Sodium (Chloride) 110 mls @ 110 mls/hr IVPB DAILY [facility] Stop: 04/12/18 10:59 Last Admin: 04/09/18 11:27 Dose: 110 mls/hr Ceftaroline Fosamil 600 mg/ (Sodium Chloride) 100 mls @ 100 mls/hr IVPB Q12 [facility]; Protocol Stop: 04/18/18 14:01 Last Admin: 04/10/18 09:20 Dose: 100 mls/hr Insulin Human Regular (Humulin R Low) 0 units SC ACHS [facility]; Protocol Last Admin: 04/10/18 07:33 Dose: Not Given Levalbuterol HCl (Xopenex) 0.63 mg IH [id number] [facility] Last Admin: 04/10/18 07:48 Dose: Not Given Metoprolol Tartrate (Lopressor) 25 mg PO BID [facility] Last Admin: 04/10/18 09:18 Dose: 25 mg Oxycodone/Acetaminophen (Percocet 5/325 Mg Tab) 1 tab PO Q6H PRN PRN Reason: Pain, moderate (4-7) Stop: 04/12/18 09:44 Oxycodone/Acetaminophen (Percocet 5/325 Mg Tab) 2 tab PO Q6H PRN PRN Reason: Pain, severe (8-10) Stop: 04/12/18 09:44 Pantoprazole Sodium (Protonix Ec Tab) 40 mg PO 0600 [facility] Last Admin: 04/10/18 09:18 Dose: 40 mg Polyethylene Glycol (Miralax) 17 gm PO BID [facility] Last Admin: 04/10/18 09:21 Dose: Not Given - Labs Labs: 04/10/18 07:00 04/10/18 07:00 PT 13.6 SECONDS (9.4-12.5) H 04/06/18 11:00 INR 1.18 04/06/18 11:00 APTT 31.3 Seconds (25.1-36.5) 04/06/18 11:00 - Constitutional Appears: Well, Non-toxic - Head Exam Head Exam: ATRAUMATIC - Extremities Exam Additional comments: Dressing kept dry, clean and intact. CFT <3 secs x4 - Neurological Exam Neurological Exam: Alert, Oriented x3 - Psychiatric Exam Psychiatric exam: Normal Mood Assessment and Plan - Assessment and Plan (Free Text) Assessment: 62 yo male seen and evaluated for right first metatarsal resection and wound debridement Plan: Patient seen and evaluated Chart, labs and vitals reviewed; absent leukocytosis and afebrile Dressing not changed today; please keep intact until 04/11. MRI of the lower extremity ordered hetergenous soft tissue mass adjacent to amputated first met possible for abscess or hematoma. Some marrow edema at the distal margin of the 1st metatarsal amputation. x-ray of the lower extremity ordered; midfoot degenerative changes MOHIT/PVR ordered; relatively normal MOHIT/PVR Podiatry plan: restart heparin on 04/11, continue monitoring the wound, continue IV antibiotics Podiatry will continue to follow the patient <[email or web address] - Last Filed: 04/10/18 13:44> Objective - Vital Signs/Intake and Output Vital Signs (last 24 hours): Temp Pulse Resp BP Pulse Ox 98.2 F 75 20 121/62 98 04/10/18 08:09 04/10/18 09:18 04/10/18 08:09 04/10/18 09:18 04/10/18 08:09 Intake and Output: 04/10/18 04/10/18 06:59 18:59 Intake Total 720 260 Output Total 453 Balance 267 260 - Medications Medications: Current Medications Acetaminophen (Tylenol 325mg Tab) 650 mg PO Q6H PRN PRN Reason: Pain, Mild (1-3) Atorvastatin Calcium (Lipitor) 40 mg PO DIN [facility] Last Admin: 04/09/18 17:30 Dose: 40 mg Docusate Sodium (Colace) 100 mg PO TID [facility] Last Admin: 04/10/18 13:43 Dose: Not Given Heparin Sodium (Porcine) (Heparin) 5,000 units SC Q12 [facility]; Protocol Last Admin: 04/08/18 09:10 Dose: Not Given Sodium Chloride (Sodium Chloride 0.9%) 1,000 mls @ 100 mls/hr IV .Q10H [facility] Last Admin: 04/10/18 08:34 Dose: Not Given Iron Sucrose 200 mg/ Sodium (Chloride) 110 mls @ 110 mls/hr IVPB DAILY [facility] Stop: 04/12/18 10:59 Last Admin: 04/10/18 10:34 Dose: 110 mls/hr Ceftaroline Fosamil 600 mg/ (Sodium Chloride) 100 mls @ 100 mls/hr IVPB Q12 [facility]; Protocol Stop: 04/18/18 14:01 Last Admin: 04/10/18 09:20 Dose: 100 mls/hr Insulin Human Regular (Humulin R Low) 0 units SC ACHS [facility]; Protocol Last Admin: 04/10/18 11:19 Dose: Not Given Levalbuterol HCl (Xopenex) 0.63 mg IH [id number] [facility] Last Admin: 04/10/18 07:48 Dose: Not Given Metoprolol Tartrate (Lopressor) 25 mg PO BID [facility] Last Admin: 04/10/18 09:18 Dose: 25 mg Oxycodone/Acetaminophen (Percocet 5/325 Mg Tab) 1 tab PO Q6H PRN PRN Reason: Pain, moderate (4-7) Stop: 04/12/18 09:44 Oxycodone/Acetaminophen (Percocet 5/325 Mg Tab) 2 tab PO Q6H PRN PRN Reason: Pain, severe (8-10) Stop: 04/12/18 09:44 Pantoprazole Sodium (Protonix Ec Tab) 40 mg PO 0600 [facility] Last Admin: 04/10/18 09:18 Dose: 40 mg Polyethylene Glycol (Miralax) 17 gm PO BID [facility] Last Admin: 04/10/18 09:21 Dose: Not Given - Labs Labs: 04/10/18 07:00 04/10/18 07:00 PT 13.6 SECONDS (9.4-12.5) H 04/06/18 11:00 INR 1.18 04/06/18 11:00 APTT 31.3 Seconds (25.1-36.5) 04/06/18 11:00 Attending/Attestation - Attestation I have personally seen and examined this patient.: Yes I have fully participated in the care of the patient.: Yes I have reviewed all pertinent clinical information, including history, physical exam and plan: Yes
--- NOTE | 2018-04-10 11:05 | PN ---
DATE: 04/10/2018 SUBJECTIVE: The patient is seen lying in the bed in room 570, bed 2. The patient does not offer any specific complaints. Overnight nurse's notes were reviewed. The patient's right foot dressing is intact. The patient is yet to be seen by the Podiatry today. PHYSICAL EXAMINATION: VITAL SIGNS: T-max 98.2, pulse 75, blood pressure 121/62, respirations 20, O2 sat 98%. Head examination normocephalic, atraumatic. HEENT examination shows pinkish pale conjunctivae. Dry oral mucosa. NECK: No neck rigidity. CHEST: Kyphosis. LUNGS: Shows no rales, crackles or wheezing. CARDIOVASCULAR: S1, S2, regular rhythm. Questionable soft systolic murmur, left sternal border, right second intercostal space, left second intercostal space. ABDOMEN: Soft. Positive bowel sounds. No palpable hepatosplenomegaly noted. Genitalia: Male. Rectal examination is deferred. EXTREMITIES: Extremity shows positive right foot dressing and Elias wrap. Both feet and legs are warm to touch. MUSCULOSKELETAL: Examination is as per the body mass index. NEUROLOGICAL: The patient is alert, awake, oriented x3. Neuro examination is without any gross deficit. Gait examination is not tested. LABORATORY DATA: On 04/10/2018, WBC 5.6, hemoglobin/hematocrit 10.4/32, platelets 153. Sodium 139, potassium 4.5, chloride 107, CO2 of 26, BUN 14, creatinine 1.6, glucose 119, calcium 9.0, phosphorus 2.8, magnesium 1.9. IMPRESSION AND PLAN: 1. Right foot first metatarsal bone, possible suspicious osteomyelitis with abscess. 2. Status post right foot first metatarsal partial resection. 3. History of osteomyelitis of the right foot, great toe, status post right foot great toe amputation. 4. Hypertension. 5. Normocytic possible iron-deficiency anemia versus anemia of chronic disease. 6. Status post acute kidney injury. 7. Questionable iron deficiency. 8. Uncontrolled diabetes mellitus with hemoglobin A1c of 8.8 and elevated fructosamine of greater than 350. PLAN: At this time, the patient is to be continued on IV Teflaro as per Infectious Disease recommendation. We are still awaiting for the cultures from the OR from the surgery day before yesterday, which will determine the duration of IV antibiotics and also will be dependent upon the resection margins if they are clear of osteomyelitis. At present, the patient is to be continued on IV fluid, broad-spectrum IV antibiotics as per Infectious Disease with GI and DVT prophylaxis. The patient will be continued on sliding scale coverage. The patient will be continued on GI and DVT prophylaxis. The patient will be continued on physical therapy, occupational therapy, ambulation therapy with nonweightbearing on the right foot. At present, the patient has been updated about all the possibilities of therapeutic intervention including short-term versus long-term IV antibiotic treatment depending upon the results from the operating room cultures and depending upon the pathology results from the metatarsal resection margin. Dictated and electronically signed, not read. Melo Rivero MD
--- NOTE | 2018-04-10 17:54 | PN ---
DATE: 04/10/2018 SUBJECTIVE: The patient is in bed, in no acute distress, nontoxic. PHYSICAL EXAMINATION: VITAL SIGNS: On exam, temperature is 98, blood pressure is 140/90, respiratory rate of 18. HEENT: Unremarkable. NECK: Supple. LUNGS: Have decreased breath sounds. HEART: Normal S1, S2. ABDOMEN: Soft, nontender. LABORATORY DATA: Laboratory examination reveals a white count of 5.6, hemoglobin of 10. BUN of 14, creatinine of 1.6. Urinalysis is noted and serology is reviewed. Microbiology is reviewed. Cultures are no growth. There is on the left foot and superficial. Deep cultures have no growth, and review of orders reveals the patient to be on ceftaroline. 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 Awaiting for final culture results and pathology results. We will make further recommendations. Tim Bob MD
[2018-04-11] MEDS: Levalbuterol 0.63 MG/3 ML Inhal Soln UD IH SCH ×4 (02:31→19:27)
[2018-04-11] MEDS: Sodium Chloride 0.9% 1,000 ML IV SCH (04:33)
[2018-04-11] MEDS: Pantoprazole 40 mg EC Tab PO SCH (05:53)
[2018-04-11] MEDS: Ceftaroline 600 MG in Sodium Chloride 0.9% 100 ML IVPB SCH ×2 (09:29→22:32)
[2018-04-11] MEDS: POLYETHYLENE GLYCOL 3350 17 GM/Dose PACKET PO SCH ×2 (10:48→17:54)
[2018-04-11] MEDS: Insulin Reg-LOW-Coverage SC SCH ×4 (10:48→22:32)
--- NOTE | 2018-04-11 13:00 | CP.PCM.PN ---
<Etelvina Wyatt - Last Filed: 04/11/18 17:16> Subjective - Date & Time of Evaluation Date of Evaluation: 04/11/18 Time of Evaluation: 13:00 - Subjective Subjective: Podiatry progress note for Dr. Galan/Sarai, 62 year old male with past medical history of osteomyelitis of the foot, right great toe amputation in 2016, diabetes seen at bedside 1 day s/p right first metatarsal resection and wound debridement. Patient denies acute overnight events. States physical therapy came to see him this morning. Patient denies any pain sensation, drainage from wounds, fever, chills, nausea, vomiting, chest pain, shortness of breath or any other complaints at this time. Objective - Vital Signs/Intake and Output Vital Signs (last 24 hours): Temp Pulse Resp BP Pulse Ox 98.3 F 65 20 125/76 98 04/11/18 07:30 04/11/18 09:29 04/11/18 07:30 04/11/18 09:29 04/11/18 07:30 Intake and Output: 04/11/18 04/11/18 06:59 18:59 Intake Total 240 Balance 240 - Medications Medications: Current Medications Acetaminophen (Tylenol 325mg Tab) 650 mg PO Q6H PRN PRN Reason: Pain, Mild (1-3) Atorvastatin Calcium (Lipitor) 40 mg PO DIN [facility] Last Admin: 04/10/18 17:19 Dose: 40 mg Docusate Sodium (Colace) 100 mg PO TID [facility] Last Admin: 04/11/18 09:28 Dose: Not Given Heparin Sodium (Porcine) (Heparin) 5,000 units SC Q12 [facility]; Protocol Last Admin: 04/08/18 09:10 Dose: Not Given Sodium Chloride (Sodium Chloride 0.9%) 1,000 mls @ 100 mls/hr IV .Q10H [facility] Last Admin: 04/11/18 04:33 Dose: Not Given Iron Sucrose 200 mg/ Sodium (Chloride) 110 mls @ 110 mls/hr IVPB DAILY [facility] Stop: 04/12/18 10:59 Last Admin: 04/11/18 10:49 Dose: 110 mls/hr Ceftaroline Fosamil 600 mg/ (Sodium Chloride) 100 mls @ 100 mls/hr IVPB Q12 [facility]; Protocol Stop: 04/18/18 14:01 Last Admin: 04/11/18 09:29 Dose: 100 mls/hr Insulin Human Regular (Humulin R Low) 0 units SC ACHS [facility]; Protocol Last Admin: 04/11/18 10:48 Dose: Not Given Levalbuterol HCl (Xopenex) 0.63 mg IH [id number] [facility] Last Admin: 04/11/18 07:22 Dose: Not Given Metoprolol Tartrate (Lopressor) 25 mg PO BID [facility] Last Admin: 04/11/18 09:29 Dose: 25 mg Oxycodone/Acetaminophen (Percocet 5/325 Mg Tab) 1 tab PO Q6H PRN PRN Reason: Pain, moderate (4-7) Stop: 04/12/18 09:44 Oxycodone/Acetaminophen (Percocet 5/325 Mg Tab) 2 tab PO Q6H PRN PRN Reason: Pain, severe (8-10) Stop: 04/12/18 09:44 Pantoprazole Sodium (Protonix Ec Tab) 40 mg PO 0600 [facility] Last Admin: 04/11/18 05:53 Dose: 40 mg Polyethylene Glycol (Miralax) 17 gm PO BID [facility] Last Admin: 04/11/18 10:48 Dose: Not Given - Labs Labs: 04/10/18 07:00 04/10/18 07:00 PT 13.6 SECONDS (9.4-12.5) H 04/06/18 11:00 INR 1.18 04/06/18 11:00 APTT 31.3 Seconds (25.1-36.5) 04/06/18 11:00 - Constitutional Appears: Well, Non-toxic, No Acute Distress - Extremities Exam Additional comments: Right lower extremity focused exam: Vasc: DP/PT pulses palpable 2/4. Temperature gradient warm to cool. CFT < 3 sec to all digits x4. No pedal edema noted Derm: Surgical site along former location of first metatarsal approx 5cm in length with sutures intact, no signs of dehiscence noted, skin edges well- coapted. No drainage, no suleman-incision erythema, no malodor. Plantar forefoot circular ulceration approx 1.5cm in diameter and 0.2cm in depth with beefy granular wound base noted, no active drainage or purulence expressed, no malodor. Neuro: protective sensation grossly intact Ortho: No tenderness to palpation of surgical site or plantar forefoot ulceration - Neurological Exam Neurological Exam: Alert, Awake, Oriented x3 - Psychiatric Exam Psychiatric exam: Normal Affect, Normal Mood Assessment and Plan - Assessment and Plan (Free Text) Assessment: 62 y/o male who is 2 days s/p right foot 1st metatarsal resection and debridement of plantar forefoot ulceration Plan: Patient seen and evaluated Discussed with Dr. Moon Absent leukocytosis and afebrile MRI of RLE ordered, shows heterogenous soft tissue mass adjacent to amputated first met possible for abscess or hematoma. Some marrow edema at the distal margin of the 1st metatarsal amputation. X-ray of the lower extremity ordered; midfoot degenerative changes MOHIT/PVR ordered; demonstrate relatively normal MOHIT/PVR Heparin restarted today Packing from plantar wound pulled today - wound site dressed with betadine, maxorb and DSD Surgical site dressed with Adaptic Podiatry will continue to follow the patient while in house Upon discharge, pt to follow up with Dr. Galan in her office <Ulysses Moon - Last Filed: 04/14/18 12:02> Objective - Vital Signs/Intake and Output Vital Signs (last 24 hours): Temp Pulse Resp BP Pulse Ox 98.2 F 58 L 20 148/80 99 04/14/18 06:00 04/14/18 06:00 04/14/18 06:00 04/14/18 06:00 04/14/18 06:00 Intake and Output: 04/14/18 04/14/18 06:59 18:59 Intake Total 800 Balance 800 - Medications Medications: Current Medications Acetaminophen (Tylenol 325mg Tab) 650 mg PO Q6H PRN PRN Reason: Pain, Mild (1-3) Atorvastatin Calcium (Lipitor) 40 mg PO DIN [facility] Last Admin: 04/13/18 17:51 Dose: 40 mg Heparin Sodium (Porcine) (Heparin) 5,000 units SC Q12 [facility]; Protocol Last Admin: 04/14/18 10:46 Dose: 5,000 units Ceftaroline Fosamil 600 mg/ (Sodium Chloride) 100 mls @ 100 mls/hr IVPB Q12 [facility]; Protocol Stop: 04/18/18 14:01 Last Admin: 04/14/18 11:39 Dose: 100 mls/hr Insulin Human Regular (Humulin R Low) 0 units SC ACHS [facility]; Protocol Last Admin: 04/14/18 11:56 Dose: 1 unit Levalbuterol HCl (Xopenex) 0.63 mg IH [id number] [facility] Last Admin: 04/14/18 07:22 Dose: Not Given Metoprolol Tartrate (Lopressor) 25 mg PO BID [facility] Last Admin: 04/13/18 17:51 Dose: 25 mg Mupirocin (Bactroban Ointment) 10 gm TOP BID [facility] Last Admin: 04/14/18 11:39 Dose: 1 applic Pantoprazole Sodium (Protonix Ec Tab) 40 mg PO 0600 [facility] Last Admin: 04/14/18 05:26 Dose: 40 mg - Labs Labs: 04/13/18 07:00 04/13/18 07:00 PT 13.6 SECONDS (9.4-12.5) H 04/06/18 11:00 INR 1.18 04/06/18 11:00 APTT 31.3 Seconds (25.1-36.5) 04/06/18 11:00 Attending/Attestation - Attestation I have personally seen and examined this patient.: Yes I have fully participated in the care of the patient.: Yes I have reviewed all pertinent clinical information, including history, physical exam and plan: Yes
--- NOTE | 2018-04-11 14:20 | PN ---
DATE: 04/11/2018 The patient is in bed in no acute distress. He is comfortable. He is tolerating the antibiotics well. PHYSICAL EXAMINATION: Temperature is 98, blood pressure is 120/70, respiratory rate of 18, heart rate of 71. Examination of HEENT is unremarkable. Neck is supple. Lungs show decreased breath sounds. Heart exam is normal S1 and S2. Abdominal examination is soft, nontender. LABORATORY EXAMINATION: Cultures, no growth from the OR. Blood cultures, no growth. Urine cultures, no growth. The left foot culture is Gabriela parapsilosis. 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 Awaiting for pathology report. We will continue with Teflaro at this point because of acute kidney injury, pending pathology, and to rule out underlying osteomyelitis and look at the margins and the OR cultures, which thus far are negative. Case discussed with Dr. Campo himself at length. He understands. Tim Bob MD
--- NOTE | 2018-04-11 17:58 | PN ---
DATE: 04/11/2018 SUBJECTIVE: The patient is seen sitting up in the bed in room 570, bed 2. The patient is alert, awake, responsive. Watching TV. The patient does not appear to be in any distress. According to himself, the patient was seen by Infectious Disease, Dr. Bob and the Podiatry resident. PHYSICAL EXAMINATION: VITAL SIGNS: T-max 97.7, pulse 71, blood pressure 113/73, respirations 16, O2 sat 95%. The patient did not report any adverse complaints and events. HEENT: Head: Normocephalic, atraumatic. HEENT examination shows pinkish pale conjunctivae. Anicteric sclerae. No oropharyngeal lesion. NECK: No neck rigidity. CHEST: Kyphosis. LUNGS: Shows no rales, crackles or wheezing. CARDIOVASCULAR: S1, S2, regular rhythm. Questionable soft systolic murmur, left sternal border, right second intercostal space, left second intercostal space. ABDOMEN: Soft. Positive bowel sounds. No palpable hepatosplenomegaly. GENITALIA: Male. RECTAL: Deferred. EXTREMITIES: Shows positive right foot dressing and Elias wrap noted. Gait examination is not tested. Vascular examination is palpable 1+ pulses and bilateral lower extremities are warm to touch. Gait examination could not be tested. DIAGNOSTICS: None from today, but right foot wound culture is growing Gabriela parapsilosis. Gram stain is negative. IMPRESSION: 1. Possible osteomyelitis of the right foot first metatarsal. 2. Abscess of the right foot first metatarsal. 3. Status post right foot first metatarsal partial resection and abscess drainage. 4. Right foot first metatarsal bone diabetic foot ulceration, failed outpatient oral antibiotic treatment. 5. Hypertension. 6. Possible iron-deficiency anemia versus anemia of chronic disease. 7. Uncontrolled diabetes mellitus with hemoglobin A1c of 8.8 and hyperfructosemia. 8. Fecal stasis and fecal retention and constipation. 9. Multilobar right-sided radicular nodular infiltrates versus pneumonia. 10. Gait dysfunction. 11. Deconditioning. 12. History of right foot first toe great toe osteomyelitis and right foot great toe amputation. PLAN AT THIS TIME: The patient is to be continued on IV fluid, IV antibiotics as per Infectious Disease recommendation. The patient will be continued on GI, DVT prophylaxis. The patient will be continued on close followup with Podiatry and Infectious Disease. At present, the patient's further treatment and duration of IV antibiotic will be dependent upon the pathology results of the resection margin from the surgery, which will determine the duration of IV antibiotic versus p.o. antibiotic, which the patient is well aware of and has been explained to the patient by me and Dr. Bob. All questions concerned answered. Dictated and electronically signed, not read. Melo Rivero MD
[2018-04-12] MEDS: Sodium Chloride 0.9% 1,000 ML IV SCH ×3 (00:11→10:15)
[2018-04-12] MEDS: Levalbuterol 0.63 MG/3 ML Inhal Soln UD IH SCH ×5 (01:34→20:52)
[2018-04-12] MEDS: Pantoprazole 40 mg EC Tab PO SCH (06:21)
[2018-04-12] MEDS: Insulin Reg-LOW-Coverage SC SCH ×4 (08:05→22:49)
[2018-04-12] MEDS: Ceftaroline 600 MG in Sodium Chloride 0.9% 100 ML IVPB SCH ×2 (09:37→22:38)
[2018-04-12] MEDS: POLYETHYLENE GLYCOL 3350 17 GM/Dose PACKET PO SCH ×2 (09:37→17:47)
[2018-04-12] MEDS ORDERED: Sodium Chloride 0.9% 1,000 ML IV SCH (14:15)
--- NOTE | 2018-04-12 16:34 | PN ---
DATE: 04/12/2018 SUBJECTIVE: The patient is in bed, in no acute distress, nontoxic. PHYSICAL EXAMINATION: VITAL SIGNS: On exam, temperature is 97, blood pressure is 130/80, respiratory rate of 20. HEENT: Examination of HEENT is unremarkable. NECK: Supple. LUNGS: Have decreased breath sounds. HEART: Normal S1, S2. ABDOMEN: Soft, nontender. LABORATORY DATA: Laboratory examination reveals a white count of 5.6, hemoglobin of 10. Chemistries are noted and creatinine is 1.6. Urinalysis is noted. RPR is nonreactive. HIV is nonreactive. Microbiology is Gabriela parapsilosis in the left foot. The OR cultures of the right foot so far has no growth, no organism is seen. Currently, the patient is on Teflaro. 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 Awaiting for a pathology report. If the pathology report revealed reveals no osteomyelitis, I would switch to p.o. antibiotics to complete 5-7 days. If obviously, the pathology report shows osteomyelitis, will need prolonged antibiotics. Thus far, microbiologically we do not have any identification of any organism. The OR cultures were negative and the patient did not receive antibiotics prior going to the OR. The patient was admitted and antibiotics were held after the OR. Tim Bob MD
--- NOTE | 2018-04-12 17:45 | PN ---
DATE: 04/12/2018 SUBJECTIVE: The patient is seen in Room 570, Bed 2. Overnight nurse's notes were reviewed. The patient was seen by Infectious Disease in the last 24 hours. The patient was found to be alert, awake, oriented x3. Dressing to the right foot was maintained with Elias wraps. PHYSICAL EXAMINATION: VITAL SIGNS: In the last 24 hours, T-max is 98.2 to 98.3; heart rate 62; blood pressure 129/66, 131/80, 130/80; respiration 18 to 20; O2 sat 99% to 100%. HEENT: Head: Normocephalic, atraumatic. Pinkish pale conjunctivae. Anicteric sclerae. No oropharyngeal lesion. NECK: No neck rigidity. CHEST: Kyphosis. LUNGS: Positive rhonchi bilaterally, right more than the left. CARDIOVASCULAR: S1 and S2, regular rhythm. Questionable soft systolic murmur left sternal border, right second intercostal space, left second intercostal space. ABDOMEN: Soft. Positive bowel sound. No palpable hepatosplenomegaly noted. GENITALIA: Male. RECTAL: Deferred. EXTREMITIES: Positive dressing of the right lower extremity. Positive skin changes of the right and left lower extremities. No pitting edema noted. Positive dressing and Elias wrap noted of the right foot. MUSCULOSKELETAL: Examination shows a body mass index of 24.2. NEUROVASCULAR: Cranial nerves II-XII grossly intact. Motor strength is 5/5. DIAGNOSTICS: None from 04/12/2018. Diagnostics from 04/10/2018 were reviewed. Fingerstick blood sugar 196, 104, 191, 152, 175, 113. The patient was seen by Podiatry yesterday and Infectious Disease yesterday. The recommendation by Podiatry is dressing changes. Antibiotics as per Infectious Disease. The patient was seen by Infectious Disease yesterday. Infectious Disease recommendation is to wait for the pathology report from the operating room to rule out any underlying osteomyelitis, which will determine the duration of the IV versus p.o. antibiotic therapy. IMPRESSION: 1. Right foot first metatarsal suspicious abscess and soft tissue mass with marrow edema of the first metatarsal amputation suspicious for osteomyelitis. 2. 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 3. Hypertension. 4. Uncontrolled diabetes mellitus with elevated hemoglobin A1c of 8.4 and hyperfructosemia of 344. 5. Normocytic possibly iron-deficiency anemia versus anemia of chronic disease. 6. Elevated erythrocyte sedimentation rate of 52. 7. Chronic kidney disease stage III with acute kidney injury (resolving). 8. Iron-deficiency anemia. 9. Mild hyperlipidemia. 10. Gabriela parapsilosis right foot diabetic foot ulceration. 11. Status post right foot first metatarsal partial resection with advanced degenerative joint disease of the right midfoot and the forefoot and the right hind foot. 12. Right foot second and third metatarsal old healed fracture with advanced osteoarthritis of the middle and the lateral cuneiform bone and cuboid articulation. 13. Bilateral renal cortical atrophy. 14. Gait dysfunction. 15. Deconditioning. 16. Right upper lobe, middle lobe and lower lobe reticulonodular infiltrate pattern, etiology undetermined. 17. Lingular subpleural nodule. 18. Fecal retention throughout the colon. 19. Colonic fecal retention and fecal stasis. 20. Small umbilical hernia containing short segment transverse colon. 21. Relative lymphocytosis on the flow cytometry. 22. Left ventricle ejection fraction of 55% with concentric left ventricular hypertrophy. 23. Moderate mitral regurgitation with thickened aortic valve and thickened mitral valve. 24. [id number] tricuspid regurgitation and thickened tricuspid valve. 25. Hypertensive cardiovascular disease with some lateral ischemic changes on the EKG. 26. Status post right foot first metatarsal resection for right foot first metatarsal osteomyelitis. PLAN: At this time, the patient has been ordered repeat labs for the morning including CBC, ESR, C-reactive protein, CMP, LFTs, magnesium phosphorus. We are still waiting for the pathology report from the right foot first metatarsal amputation. CURRENT CONSULTATIONS: Podiatry and Infectious Disease. CURRENT MEDICATIONS: Colace 100 mg three times a day, heparin 5000 subcu every 12 hours for DVT prophylaxis, Humulin low-dose sliding scale coverage a.c. and h.s., Lipitor 40 mg daily, Lopressor 25 mg twice a day, MiraLax 17 g twice a day, Protonix 40 mg daily, IV fluid 0.9 normal saline at 100 mL/h, Teflaro 600 mg IV every 12 hours, Tylenol 650 every 6 hours p.r.n., and Xopenex nebulizer 0.63 mg every 6 hours. The patient's IV fluid will be decreased to 70 mL/h. We will review the patient's renal profile in the morning. The patient is on Teflaro 600 mg IV every 12 hours. The patient has been ordered chest PT, incentive spirometry, and consistent carbohydrate diet. The patient was evaluated, was in physical therapy, was found to be not a candidate for skilled PT. The patient was evaluated and referred to [facility]. Discharge plan at this time home with outpatient services depending upon the pathology and OR cultures. The patient updated about his diagnosis condition. Treatment plan and recommendation by Podiatry and Infectious Disease has already been informed to the patient by the individual consult and their respective consultants. Melo Rivero MD [facility]
[2018-04-13] MEDS: Levalbuterol 0.63 MG/3 ML Inhal Soln UD IH SCH ×3 (02:11→20:29)
[2018-04-13] MEDS: Pantoprazole 40 mg EC Tab PO SCH (06:13)
[2018-04-13 07:33] LABS: BASO # 0.01 K/mm3 (0.0-2.0); BASO % 0.2 % (0.0-3.0); EOS # 0.2 (0.0-0.7); EOS % 4.6 % (1.5-5.0); GRAN # 2.6 (1.4-6.5); GRAN % 59.8 % (50.0-68.0); HEMOGLOBIN 9.9 g/dL (14.0-18.0); LYMPH # 1.2 (1.2-3.4); LYMPH % 26.4 % (22.0-35.0); MEAN CELL VOLUME 86.9 fl (80.0-105.0); MEAN CORPUSCULAR HEMOGLOBIN 27.7 pg (25.0-35.0); MEAN CORPUSCULAR HGB CONC 31.8 g/dl (31.0-37.0); MEAN PLATELET VOLUME 9.9 fl (7.0-11.0); MONO # 0.4 (0.1-0.6); RBC 3.58 10^6/uL (3.5-6.1); WHITE BLOOD COUNT 4.4 10^3/uL (4.5-11.0)
[2018-04-13 07:51] LABS: ALB/GLOB RATIO 1.2 (1.1-1.8); ALBUMIN 3.7 g/dL (3.0-4.8); BILIRUBIN,DIRECT 0.3 mg/dL (0.0-0.4); CALCIUM 9.2 mg/dL (8.4-10.5)
--- NOTE | 2018-04-13 08:32 | OP ---
PROCEDURE DATE: 04/09/2018 SURGEON: Mable Galan DPM. PRINTER APPRENTICE: Kathi Cuellar, PGY-1. ANESTHESIOLOGIST: Dr. Lopes. ANESTHESIA: IV sedation with local Macdonald block. PREOPERATIVE DIAGNOSIS: Right first metatarsal osteomyelitis. POSTOPERATIVE DIAGNOSIS: Right first metatarsal osteomyelitis. NAME OF PROCEDURE: Right foot partial resection of first metatarsal. INDICATIONS: The patient is a 62-year-old male with the above diagnosis. The patient has exhausted full conservative treatment at this time and now requires surgical intervention. The patient signed the consent after careful explanation of risks, benefits, complications, and alternatives of surgical procedure. No guarantees were given nor implied. NPO status was confirmed prior to taking the patient to the OR. PREPARATION: The patient was brought into the operating room and placed on the operating room table in a supine position. Time-out was performed for identification of correct position and procedure. The patient received a total of 15 mL of 2% lidocaine plain in a local block type fashion to the right hallux in the midfoot. The right foot was then prepped and draped in normal sterile manner and the procedure begin. No tourniquet was used during the procedure. PROCEDURE: Attention was directed to the plantar medial aspect of the right fourth foot where a circular wound was noted probing to bone in the dorsal aspect of the foot. Attention was then directed to the dorsal aspect of a foot where a 2.5 cm linear incision was made at the distal tip of the first metatarsal using a Cresson #15 blade. Incision was then deepened through the subcutaneous tissue to the bone taking care the neurovascular structures and cauterizing all bleeding vessels. The periosteum was then elevated from the bone using a Landry elevator. The sagittal saw was then used to resect the metatarsal bone leaving more plantarly than dorsally. The resected bone was then clamped with the bone clamps and the tissue surrounding the bone was removed carefully using a scissor. The bone was then packed off the visual field and sent to Pathology. Deep wound cultures were also taken at this time. All necrotic and nonviable tissue was then excisionally debrided until fresh and healthy bleeding granular tissue was noted. Bone rasp was then used to debride all the sharp edges off the distal aspect of the first metatarsal. The branch of wound was then debrided until healthy granular tissue is noted. Both wounds were then flushed with copious amounts of sterile normal saline solution. Subcuticular and subcutaneous tissue on the dorsal aspect was then reapproximated and coapted utilizing 3-0 Vicryl suture. The skin was then reapproximated and coapted utilizing 4-0 nylon in a horizontal mattress fashion. The plantar wound was then packed with 1/4 inch iodoform packing. The wound was dressed with gauze, ABD pad, kerlix and Elias with minimal compression. The patient tolerated local anesthesia throughout the procedure well and was escorted to the recovery room with neurovascular status intact to the right foot and vital signs stable. The patient is to remain nonweightbearing at this time. The patient will remain in house on Flagyl. Continue to follow up. The patient will continue to receive IV antibiotics while inpatient at the hospital. KATHI CUELLAR Mable Galan DPM [facility]
[2018-04-13] MEDS: Ceftaroline 600 MG in Sodium Chloride 0.9% 100 ML IVPB SCH ×2 (09:51→21:22)
--- NOTE | 2018-04-13 11:21 | PN ---
DATE: 04/13/2018 SUBJECTIVE: The patient is in room 570, bed 2. Overnight nurse's notes were reviewed for the last 12-24 hours. The patient refused IV fluid. The patient refused stool softeners and laxative, which were stopped. No adverse events documented by the nurses as per the nurse's notes. The patient is tolerating the IV antibiotics. PHYSICAL EXAMINATION: VITAL SIGNS: T-max 97.8; pulse 69; blood pressure 159/91, 116/70; respirations 18; O2 sat 99%. HEENT: Head examination normocephalic, atraumatic. HEENT examination shows pinkish pale conjunctivae. Anicteric sclerae. No oropharyngeal lesion. No neck rigidity. CHEST: Kyphosis. LUNGS: Shows occasional rhonchi, right more than the left. No crackles, rales or wheezing. CARDIOVASCULAR: S1, S2. Regular rhythm. Questionable soft systolic murmur, left sternal border, right second intercostal space, left second intercostal space. ABDOMEN: Soft. No palpable hepatosplenomegaly noted. GENITALIA: Male. RECTAL: Deferred. EXTREMITY: Shows positive right foot dressing and Elias wrap of the right foot. MUSCULOSKELETAL: As per the BMI of the [employer]. NEUROLOGICAL: The patient is alert, awake, oriented x3, is able to move upper and lower extremity. At present, the patient will be continued on the above therapeutic intervention. The patient will be continued on IV antibiotics, Teflaro as per Infectious Disease. The patient will be continued on GI, DVT prophylaxis. The patient will be continued on Podiatry and Infectious Disease followup. LABORATORY DATA: The patient's diagnostic data from today, WBC 4.4, hemoglobin and hematocrit 9.9 and 31.1, platelets 125. ESR is 67. Sodium 141, potassium 4.6, chloride 105, CO2 of 30, BUN 16, creatinine 1.6, glucose 127, calcium 9.2, phosphorus 2.5, magnesium 2. LFTs are within normal limit. IMPRESSION AND PLAN: 1. Right foot first metatarsal osteomyelitis and abscess. 2. Status post right foot first metatarsal partial resection. 3. Leukopenia. 4. Probable iron-deficiency anemia with leukopenia. 5. Elevated erythrocyte sedimentation rate of 67. 6. Acute kidney injury, resolving. 7. Uncontrolled insulin-requiring diabetes mellitus with elevated hemoglobin A1c of 8.4 and hyperfructosemia. 8. Gait dysfunction. 9. History of hypertension. 10. History of right foot great toe osteomyelitis and right foot first toe and great toe amputation. 11. Fecal stasis and fecal retention and constipation. 12. Right upper lobe, middle lobe, lower lobe reticular nodular infiltrate. 13. Hypertension. 14. Borderline hyperlipidemia. 15. Deconditioning. Plan at this time, the patient will be continued on the therapeutic intervention as per the Infectious Disease recommendation including IV antibiotics. The patient will be continued on GI, DVT prophylaxis. The patient will be continued on all the therapeutic intervention as per the MAR of today. We are still waiting for the pathology results from the operating room and awaiting for the pathology results of the first metatarsal resection, which will determine the duration of the IV antibiotic treatment and also we will determine whether the patient needs to be on IV antibiotics versus the patient can be switched over to oral antibiotics. At present, we are awaiting for that above. The patient has been updated about the details of above situation, which he acknowledged and understand. All questions concerned answered. Dictated and electronically signed, not read. Melo Rivero MD
--- NOTE | 2018-04-13 11:26 | CP.PCM.PN ---
<Kimani Mejias - Last Filed: 04/13/18 11:18> Subjective - Date & Time of Evaluation Date of Evaluation: 04/13/18 Time of Evaluation: :18 - Subjective Subjective: Podiatry progress note for Dr. Galan 62 year old male with past medical history of osteomyelitis of the foot, right great toe amputation in 2016, diabetes seen at bedside with Dr. Galan 3 days s/p right first metatarsal resection and wound debridement. Patient denies acute overnight events. Patient denies any pain sensation, drainage from wounds, fever, chills, nausea, vomiting, chest pain, shortness of breath or any other complaints at this time. Objective - Vital Signs/Intake and Output Vital Signs (last 24 hours): Temp Pulse Resp BP Pulse Ox 98 F 90 20 124/72 100 04/13/18 06:00 04/13/18 09:51 04/13/18 06:00 04/13/18 09:51 04/13/18 06:00 - Medications Medications: Current Medications Acetaminophen (Tylenol 325mg Tab) 650 mg PO Q6H PRN PRN Reason: Pain, Mild (1-3) Atorvastatin Calcium (Lipitor) 40 mg PO DIN ON LICENSE OF [facility] Last Admin: 04/12/18 17:46 Dose: 40 mg Heparin Sodium (Porcine) (Heparin) 5,000 units SC Q12 ON LICENSE OF [facility]; Protocol Last Admin: 04/13/18 09:52 Dose: 5,000 units Ceftaroline Fosamil 600 mg/ (Sodium Chloride) 100 mls @ 100 mls/hr IVPB Q12 ON LICENSE OF [facility]; Protocol Stop: 04/18/18 14:01 Last Admin: 04/13/18 09:51 Dose: 100 mls/hr Insulin Human Regular (Humulin R Low) 0 units SC ACHS ON LICENSE OF [facility]; Protocol Last Admin: 04/12/18 22:49 Dose: Not Given Levalbuterol HCl (Xopenex) 0.63 mg IH [id number] ON LICENSE OF [facility] Last Admin: 04/13/18 07:17 Dose: Not Given Metoprolol Tartrate (Lopressor) 25 mg PO BID ON LICENSE OF [facility] Last Admin: 04/13/18 09:51 Dose: 25 mg Pantoprazole Sodium (Protonix Ec Tab) 40 mg PO 0600 ON LICENSE OF [facility] Last Admin: 04/13/18 06:13 Dose: 40 mg - Labs Labs: 04/13/18 07:00 04/13/18 07:00 PT 13.6 SECONDS (9.4-12.5) H 04/06/18 11:00 INR 1.18 04/06/18 11:00 APTT 31.3 Seconds (25.1-36.5) 04/06/18 11:00 - Constitutional Appears: Well, Non-toxic, No Acute Distress - Head Exam Head Exam: ATRAUMATIC, NORMOCEPHALIC - Extremities Exam Additional comments: Right lower extremity focused exam: Vasc: DP/PT pulses palpable 2/4. Temperature gradient warm to cool. CFT < 3 sec to all digits x4. No pedal edema noted Derm: Surgical site along former location of first metatarsal approx 5cm in length with sutures intact, no signs of dehiscence noted, skin edges well- coapted. No drainage, no suleman-incision erythema, no malodor. Plantar forefoot circular ulceration approx 1.5cm in diameter and 0.2cm in depth with beefy granular wound base noted, no active drainage or purulence expressed, no malodor. Neuro: protective sensation grossly intact Ortho: No tenderness to palpation of surgical site or plantar forefoot ulceration - Neurological Exam Neurological Exam: Alert, Awake, Oriented x3 - Psychiatric Exam Psychiatric exam: Normal Affect, Normal Mood Assessment and Plan - Assessment and Plan (Free Text) Assessment: 62 y/o male who is 3 days s/p right foot 1st metatarsal resection and debridement of plantar forefoot ulceration Plan: Patient seen and evaluated with Dr. Galan Absent leukocytosis and afebrile ESR 11/5: 67 MRI of RLE ordered, shows heterogenous soft tissue mass adjacent to amputated first met possible for abscess or hematoma. Some marrow edema at the distal margin of the 1st metatarsal amputation. X-ray of the lower extremity ordered; midfoot degenerative changes MOHIT/PVR ordered; demonstrate relatively normal MOHIT/PVR Dry 4x4 placed over the suture site and wound site cleansed with saline and dressed with hydrogel, DSD, CHERY Bactroban ordered Podiatry will continue to follow the patient while in house Upon discharge, pt to follow up with Dr. Galan in her office <Mable Galan - Last Filed: 04/16/18 11:39> Objective - Vital Signs/Intake and Output Vital Signs (last 24 hours): Temp Pulse Resp BP Pulse Ox 98.2 F 62 18 104/62 98 04/15/18 14:00 04/15/18 14:00 04/15/18 14:00 04/15/18 14:00 04/15/18 14:00 - Labs Labs: 04/13/18 07:00 04/13/18 07:00 PT 13.6 SECONDS (9.4-12.5) H 04/06/18 11:00 INR 1.18 04/06/18 11:00 APTT 31.3 Seconds (25.1-36.5) 04/06/18 11:00 Attending/Attestation - Attestation I have personally seen and examined this patient.: Yes I have fully participated in the care of the patient.: Yes I have reviewed all pertinent clinical information, including history, physical exam and plan: Yes
[2018-04-13] MEDS: Insulin Reg-LOW-Coverage SC SCH ×4 (12:01→23:39)
[2018-04-13] MEDS: Mupirocin 2% Ointment 15 GM TUBE TOP SCH (17:55)
--- NOTE | 2018-04-13 18:25 | CP.PCM.PN ---
Subjective - Date & Time of Evaluation Date of Evaluation: 04/13/18 Time of Evaluation: 10:40 - Subjective Subjective: No fevers, not in distress, no increased pain in the left foot. Objective - Vital Signs/Intake and Output Vital Signs (last 24 hours): Temp Pulse Resp BP Pulse Ox 97.8 F 67 18 109/65 99 04/13/18 14:00 04/13/18 17:51 04/13/18 14:00 04/13/18 17:51 04/13/18 14:00 - Medications Medications: Current Medications Acetaminophen (Tylenol 325mg Tab) 650 mg PO Q6H PRN PRN Reason: Pain, Mild (1-3) Atorvastatin Calcium (Lipitor) 40 mg PO DIN [facility] Last Admin: 04/13/18 17:51 Dose: 40 mg Heparin Sodium (Porcine) (Heparin) 5,000 units SC Q12 [facility]; Protocol Last Admin: 04/13/18 09:52 Dose: 5,000 units Ceftaroline Fosamil 600 mg/ (Sodium Chloride) 100 mls @ 100 mls/hr IVPB Q12 [facility]; Protocol Stop: 04/18/18 14:01 Last Admin: 04/13/18 09:51 Dose: 100 mls/hr Insulin Human Regular (Humulin R Low) 0 units SC ACHS [facility]; Protocol Last Admin: 04/13/18 17:53 Dose: 1 unit Levalbuterol HCl (Xopenex) 0.63 mg IH [id number] [facility] Last Admin: 04/13/18 07:17 Dose: Not Given Metoprolol Tartrate (Lopressor) 25 mg PO BID [facility] Last Admin: 04/13/18 17:51 Dose: 25 mg Mupirocin (Bactroban Ointment) 10 gm TOP BID [facility] Last Admin: 04/13/18 17:55 Dose: 1 applic Pantoprazole Sodium (Protonix Ec Tab) 40 mg PO 0600 [facility] Last Admin: 04/13/18 06:13 Dose: 40 mg - Labs Labs: 04/13/18 07:00 04/13/18 07:00 PT 13.6 SECONDS (9.4-12.5) H 04/06/18 11:00 INR 1.18 04/06/18 11:00 APTT 31.3 Seconds (25.1-36.5) 04/06/18 11:00 - Constitutional Appears: Chronically Ill - Head Exam Head Exam: NORMAL INSPECTION - Respiratory Exam Respiratory Exam: Decreased Breath Sounds - Cardiovascular Exam Cardiovascular Exam: +S1, +S2 - GI/Abdominal Exam GI & Abdominal Exam: Soft. absent: Tenderness - Extremities Exam Additional comments: left foot with dressings in place Assessment and Plan - Assessment and Plan (Free Text) Plan: Assessment Left foot skin and skin structure infection, consider osteomyelitis S/P partial first metatarsal amputation POD #3 history of osteomyelitis of right foot DM Plan continue Teflaro pending final culture results and pathology report will continue to monitor clinically
[2018-04-14] MEDS: Levalbuterol 0.63 MG/3 ML Inhal Soln UD IH SCH ×3 (01:51→20:36)
[2018-04-14] MEDS: Pantoprazole 40 mg EC Tab PO SCH (05:26)
[2018-04-14] MEDS: Insulin Reg-LOW-Coverage SC SCH ×4 (08:15→22:00)
--- NOTE | 2018-04-14 10:21 | PN ---
DATE: 04/14/2018 SUBJECTIVE: The patient is seen in room 570, bed 2. Overnight nurse's notes were reviewed. The patient tolerated IV antibiotics without any adverse effects. No adverse events documented by the nurses. PHYSICAL EXAMINATION: VITAL SIGNS: T-max 98.8, pulse 62, blood pressure 129/72, respirations 18, O2 sat 99%. GENERAL: The patient appears to be comfortable. HEENT: Head examination normocephalic, atraumatic. HEENT examination shows pinkish pale conjunctivae. Anicteric sclerae. Dry oral mucosa. No neck rigidity. CHEST: Kyphosis. LUNGS: Shows occasional rhonchi, right more than the left. No audible crackle, rales or wheezing. CARDIOVASCULAR: . ABDOMEN: Soft. Positive bowel sound. No palpable hepatosplenomegaly or organomegaly noted. GENITALIA: Male. RECTAL: Deferred. EXTREMITY: Shows no pitting edema of the lower extremity. Positive dressing and CHERY wrap of the right foot noted. VASCULAR: Decreased palpable pulses. No pitting edema noted. MUSCULOSKELETAL: As per the body mass index. Gait examination is not tested. NEUROLOGICAL: Without any gross deficit. DIAGNOSTICS: C-reactive protein is available, high sensitivity C-reactive protein is 8.87. Cardiac C-reactive protein is 9.9. Fingerstick blood sugar 156, 166, 182. OR cultures and OR pathology report still pending. IMPRESSION AND PLAN: 1. Right foot first metatarsal osteomyelitis and abscess. 2. Status post right foot first metatarsal partial resection. 3. Uncontrolled diabetes mellitus with hemoglobin A1c of 8.4 and hyperfructosemia with fructosamine level of greater than 344. 4. Hypertension. 5. Borderline hyperlipidemia. 6. Right upper, middle lobe and lower lobe reticular nodular infiltrate, etiology undetermined. 7. Lingular subpleural nodule. 8. Fecal stasis, fecal retention and constipation. 9. History of osteomyelitis of the right foot great toe, status post amputation of the right foot great toe. 10. Normocytic possible iron-deficiency anemia versus anemia of chronic disease. 11. Status post IV Venofer treatment. 12. Elevated erythrocyte sedimentation rate of greater than 50 and 65. 13. Elevated C-reactive protein. Plan at this time, the patient is to be continued on intravenous antibiotics as per Infectious Disease recommendation. The patient is to be continued on Teflaro 600 mg IV every 12. The patient has to be continued on GI, DVT prophylaxis. The patient is to be continued on Lopressor 25 twice a day, Lipitor daily. The patient is to be continued on the above therapeutic intervention until we have the pathology report from the Surgery, which will determine whether the patient's surgical margins of the metatarsal are clear of osteo or the patient as osteomyelitis on the resection margin, which will determine the duration of antibiotic therapy and which will be decided by the Infectious Disease, which the patient is aware of. The patient is aware of the entire clinical situation, management details, which has been explained to the patient by me, Infectious Disease and Podiatry at length almost on a daily basis. Dictated and electronically signed, not read. Melo Rivero MD
[2018-04-14] MEDS: Ceftaroline 600 MG in Sodium Chloride 0.9% 100 ML IVPB SCH ×2 (11:39→21:47)
[2018-04-14] MEDS: Mupirocin 2% Ointment 15 GM TUBE TOP SCH ×2 (11:39→17:19)
--- NOTE | 2018-04-14 14:41 | CP.PCM.PN ---
<Kimani Mejias - Last Filed: 04/14/18 14:37> Subjective - Date & Time of Evaluation Date of Evaluation: 04/14/18 Time of Evaluation: 14:37 - Subjective Subjective: Podiatry progress note for Dr. Moon 62 year old male with past medical history of osteomyelitis of the foot, right great toe amputation in 2016, diabetes seen at bedside with Dr. Galan 4 days s/p right first metatarsal resection and wound debridement. Patient denies acute overnight events. Patient denies any pain sensation, drainage from wounds, fever, chills, nausea, vomiting, chest pain, shortness of breath or any other complaints at this time. Objective - Vital Signs/Intake and Output Vital Signs (last 24 hours): Temp Pulse Resp BP Pulse Ox 98.2 F 58 L 20 148/80 99 04/14/18 06:00 04/14/18 06:00 04/14/18 06:00 04/14/18 06:00 04/14/18 06:00 Intake and Output: 04/14/18 04/14/18 06:59 18:59 Intake Total 800 Balance 800 - Medications Medications: Current Medications Acetaminophen (Tylenol 325mg Tab) 650 mg PO Q6H PRN PRN Reason: Pain, Mild (1-3) Atorvastatin Calcium (Lipitor) 40 mg PO DIN [facility] Last Admin: 04/13/18 17:51 Dose: 40 mg Heparin Sodium (Porcine) (Heparin) 5,000 units SC Q12 [facility]; Protocol Last Admin: 04/14/18 10:46 Dose: 5,000 units Ceftaroline Fosamil 600 mg/ (Sodium Chloride) 100 mls @ 100 mls/hr IVPB Q12 [facility]; Protocol Stop: 04/18/18 14:01 Last Admin: 04/14/18 11:39 Dose: 100 mls/hr Insulin Human Regular (Humulin R Low) 0 units SC ACHS [facility]; Protocol Last Admin: 04/14/18 11:56 Dose: 1 unit Levalbuterol HCl (Xopenex) 0.63 mg IH [id number] [facility] Last Admin: 04/14/18 07:22 Dose: Not Given Metoprolol Tartrate (Lopressor) 25 mg PO BID [facility] Last Admin: 04/14/18 11:00 Dose: Not Given Mupirocin (Bactroban Ointment) 10 gm TOP BID [facility] Last Admin: 04/14/18 11:39 Dose: 1 applic Pantoprazole Sodium (Protonix Ec Tab) 40 mg PO 0600 [facility] Last Admin: 04/14/18 05:26 Dose: 40 mg - Labs Labs: 04/13/18 07:00 04/13/18 07:00 PT 13.6 SECONDS (9.4-12.5) H 04/06/18 11:00 INR 1.18 04/06/18 11:00 APTT 31.3 Seconds (25.1-36.5) 04/06/18 11:00 - Constitutional Appears: Well, Non-toxic, No Acute Distress - Head Exam Head Exam: ATRAUMATIC, NORMOCEPHALIC - Extremities Exam Additional comments: Right lower extremity focused exam: Vasc: DP/PT pulses palpable 2/4. Temperature gradient warm to cool. CFT < 3 sec to all digits x4. No pedal edema noted Derm: Surgical site along former location of first metatarsal approx 5cm in length with sutures intact, no signs of dehiscence noted, skin edges well- coapted. No drainage, no suleman-incision erythema, no malodor. Plantar forefoot circular ulceration approx 1.1cm in diameter and 0.1cm in depth with beefy granular wound base noted, no active drainage or purulence expressed, no malodor. Neuro: protective sensation grossly intact Ortho: No tenderness to palpation of surgical site or plantar forefoot ulceration - Neurological Exam Neurological Exam: Alert, Awake, Oriented x3 - Psychiatric Exam Psychiatric exam: Normal Affect, Normal Mood Assessment and Plan - Assessment and Plan (Free Text) Assessment: 62 y/o male who is POD 4 s/p right foot 1st metatarsal resection and debridement of plantar forefoot ulceration Plan: Patient seen and evaluated with Dr. Galan Absent leukocytosis and afebrile ESR 5: 67 MRI of RLE ordered, shows heterogenous soft tissue mass adjacent to amputated first met possible for abscess or hematoma. Some marrow edema at the distal margin of the 1st metatarsal amputation. X-ray of the lower extremity ordered; midfoot degenerative changes MOHIT/PVR ordered; demonstrate relatively normal MOHIT/PVR Path read from surgical specimen sent: metatarsal bone with focal acute OM and reparative changes; resection margin of bone is negative for acute inflammation; separate bone fragment negative for inflammation Per ID - can be d/c'd on PO abx when stable if pathology reveals clean margin Wound cleansed withe sterile saline and dressed with adaptic and Dry 4x4 placed over the suture site and plantar wound dressed with hydrogel, xeroform, DSD, CHERY Bactroban ordered Podiatry will continue to follow the patient while in house Upon discharge, pt to follow up with Dr. Galan in her office <Ulysses Moon - Last Filed: 04/14/18 15:30> Objective - Vital Signs/Intake and Output Vital Signs (last 24 hours): Temp Pulse Resp BP Pulse Ox 97.7 F 75 18 133/82 100 04/14/18 14:00 04/14/18 14:00 04/14/18 14:00 04/14/18 14:00 04/14/18 14:00 Intake and Output: 04/14/18 04/14/18 06:59 18:59 Intake Total 800 Balance 800 - Medications Medications: Current Medications Acetaminophen (Tylenol 325mg Tab) 650 mg PO Q6H PRN PRN Reason: Pain, Mild (1-3) Atorvastatin Calcium (Lipitor) 40 mg PO DIN [facility] Last Admin: 04/13/18 17:51 Dose: 40 mg Heparin Sodium (Porcine) (Heparin) 5,000 units SC Q12 [facility]; Protocol Last Admin: 04/14/18 10:46 Dose: 5,000 units Ceftaroline Fosamil 600 mg/ (Sodium Chloride) 100 mls @ 100 mls/hr IVPB Q12 [facility]; Protocol Stop: 04/18/18 14:01 Last Admin: 04/14/18 11:39 Dose: 100 mls/hr Insulin Human Regular (Humulin R Low) 0 units SC ACHS [facility]; Protocol Last Admin: 04/14/18 11:56 Dose: 1 unit Levalbuterol HCl (Xopenex) 0.63 mg IH [id number] [facility] Last Admin: 04/14/18 07:22 Dose: Not Given Metoprolol Tartrate (Lopressor) 25 mg PO BID [facility] Last Admin: 04/14/18 11:00 Dose: Not Given Mupirocin (Bactroban Ointment) 10 gm TOP BID [facility] Last Admin: 04/14/18 11:39 Dose: 1 applic Pantoprazole Sodium (Protonix Ec Tab) 40 mg PO 0600 [facility] Last Admin: 04/14/18 05:26 Dose: 40 mg - Labs Labs: 04/13/18 07:00 04/13/18 07:00 PT 13.6 SECONDS (9.4-12.5) H 04/06/18 11:00 INR 1.18 04/06/18 11:00 APTT 31.3 Seconds (25.1-36.5) 04/06/18 11:00 Attending/Attestation - Attestation I have personally seen and examined this patient.: Yes I have fully participated in the care of the patient.: Yes I have reviewed all pertinent clinical information, including history, physical exam and plan: Yes
--- NOTE | 2018-04-14 16:00 | CP.PCM.PN ---
Subjective - Date & Time of Evaluation Date of Evaluation: 04/14/18 Time of Evaluation: 10:55 - Subjective Subjective: No fevers, not in distress, no increased pain in the left foot. Objective - Vital Signs/Intake and Output Vital Signs (last 24 hours): Temp Pulse Resp BP Pulse Ox 97.8 F 67 18 109/65 99 04/13/18 14:00 04/13/18 17:51 04/13/18 14:00 04/13/18 17:51 04/13/18 14:00 - Medications Medications: Current Medications Acetaminophen (Tylenol 325mg Tab) 650 mg PO Q6H PRN PRN Reason: Pain, Mild (1-3) Atorvastatin Calcium (Lipitor) 40 mg PO DIN [facility] Last Admin: 04/13/18 17:51 Dose: 40 mg Heparin Sodium (Porcine) (Heparin) 5,000 units SC Q12 [facility]; Protocol Last Admin: 04/13/18 09:52 Dose: 5,000 units Ceftaroline Fosamil 600 mg/ (Sodium Chloride) 100 mls @ 100 mls/hr IVPB Q12 [facility]; Protocol Stop: 04/18/18 14:01 Last Admin: 04/13/18 09:51 Dose: 100 mls/hr Insulin Human Regular (Humulin R Low) 0 units SC ACHS [facility]; Protocol Last Admin: 04/13/18 17:53 Dose: 1 unit Levalbuterol HCl (Xopenex) 0.63 mg IH [id number] [facility] Last Admin: 04/13/18 07:17 Dose: Not Given Metoprolol Tartrate (Lopressor) 25 mg PO BID [facility] Last Admin: 04/13/18 17:51 Dose: 25 mg Mupirocin (Bactroban Ointment) 10 gm TOP BID [facility] Last Admin: 04/13/18 17:55 Dose: 1 applic Pantoprazole Sodium (Protonix Ec Tab) 40 mg PO 0600 [facility] Last Admin: 04/13/18 06:13 Dose: 40 mg - Labs Labs: 04/13/18 07:00 04/13/18 07:00 PT 13.6 SECONDS (9.4-12.5) H 04/06/18 11:00 INR 1.18 04/06/18 11:00 APTT 31.3 Seconds (25.1-36.5) 04/06/18 11:00 - Constitutional Appears: No Acute Distress - Head Exam Head Exam: NORMAL INSPECTION - Respiratory Exam Respiratory Exam: Decreased Breath Sounds - Cardiovascular Exam Cardiovascular Exam: +S1, +S2 - GI/Abdominal Exam GI & Abdominal Exam: Soft. absent: Tenderness - Extremities Exam Additional comments: left foot with dressings in place Assessment and Plan - Assessment and Plan (Free Text) Plan: Assessment Left foot skin and skin structure infection, consider osteomyelitis S/P partial first metatarsal amputation POD #4 - margins on pathology are clear history of osteomyelitis of right foot DM Plan continue Teflaro for now - can switch to to PO antibiotics for another 3-5 days with outpatient follow up with PMD and Podiatry
--- NOTE | 2018-04-14 16:16 | PN ---
DATE: 04/14/2018 CARDIOLOGY FOLLOWUP SUBJECTIVE: The patient is resting comfortably. No shortness of breath. No chest pain. PHYSICAL EXAMINATION: VITAL SIGNS: Blood pressure is 133/82, the heart rate is in the 70s. NECK: Negative JVD. LUNGS: Without rales. HEART: Reveals S1, S2. EXTREMITIES: Bandaged. LABORATORY DATA: Hemoglobin is 9.3. Chemistries: The glucose today is 98. The potassium is 4.6. IMPRESSION: 1. Foot ulcers. 2. Hypertension. 3. Diabetes mellitus. 4. Borderline renal insufficiency. 5. Anemia. PLAN: Given these findings, the patient is doing well post surgery. He will continue on IV antibiotics. Once he recovers from his foot surgery, we will consider a stress test to rule out CAD which he has a high probability for. This can be done as an outpatient. Ciro Warren MD
[2018-04-15] MEDS: Levalbuterol 0.63 MG/3 ML Inhal Soln UD IH SCH ×3 (02:18→13:40)
[2018-04-15] MEDS: Pantoprazole 40 mg EC Tab PO SCH (06:02)
[2018-04-15] MEDS: Insulin Reg-LOW-Coverage SC SCH ×3 (07:59→17:21)
[2018-04-15] MEDS: Ceftaroline 600 MG in Sodium Chloride 0.9% 100 ML IVPB SCH (09:44)
[2018-04-15] MEDS: Mupirocin 2% Ointment 15 GM TUBE TOP SCH (09:45)
--- NOTE | 2018-04-15 11:56 | DS ---
LOCATION: The patient is in room 570, bed 2. HISTORY OF PRESENT ILLNESS: The patient is alert, awake, responsive. Overnight nurse's notes were reviewed. No adverse events were documented. The patient tolerated IV antibiotic treatment, which has been advised by and ordered by Dr. Bob and Dr. Koroma. The patient denies any other complaints. REVIEW OF SYSTEMS: Fourteen-system review was done, pertinent positives and negatives as dictated above. PHYSICAL EXAMINATION: VITAL SIGNS: T-max 98.6, pulse 70, blood pressure 118/78 and 142/83, respiration 18, O2 sat 98%. Head examination normocephalic, atraumatic. HEENT examination shows pinkish pale conjunctivae. Anicteric sclerae. No oropharyngeal lesion. NECK: No neck rigidity. CHEST: Kyphosis. LUNGS: Examination shows occasional rhonchi, right more than the left at the right base. CARDIOVASCULAR: S1, S2, regular rhythm. ABDOMEN: Soft. Positive bowel sounds. Abdomen examination does not reveal any hepatosplenomegaly. No guarding. No rigidity. No rebound tenderness. Genitalia: Male. Rectal examination deferred. EXTREMITIES: Show positive right foot dressing and Elias wraps. MUSCULOSKELETAL: As per the body mass index. NEUROLOGICAL: The patient is alert, awake, oriented x3. Cranial nerves II-XII intact, otherwise neuro examination is limited and not tested. Gait examination is independent as per the nurse's notes. FINAL IMPRESSION, PLAN AND DISCHARGE DIAGNOSES: 1. Right foot first metatarsal osteomyelitis and abscess. 2. Status post incision and drainage and the right foot first metatarsal partial resection. 3. Uncontrolled diabetes mellitus with hemoglobin A1c of 8.4 and hyperfructosemia with fructosamine level greater than 344. 4. Hypertension. 5. Normocytic possible iron-deficiency anemia. 6. Borderline hyperlipidemia. 7. Questionable abnormal EKG. 8. Mild acute kidney injury. 9. Possible underlying chronic kidney disease stage II/III. 10. Deconditioning. 11. Gait dysfunction secondary to right foot first metatarsal osteomyelitis with negative resection margin. The patient is seen by Podiatry, Infectious Disease. Pathology results are now available. The resection margins are free of any acute inflammation or osteomyelitis. The patient was seen by Infectious Disease yesterday. Recommend to continue Teflaro for now and may switch to p.o. antibiotics upon discharge. The patient was seen by Podiatry yesterday, awaiting today followup by Podiatry and Infectious Disease. PLAN: At this time, the patient will be considered for discharge if cleared by Infectious Disease and Podiatry. The patient will be discharged on p.o. antibiotics as per Infectious Disease recommendation and the duration recommended by Infectious Disease. The patient will be given new scripts for all the medications as per the ambulatory orders, including Levemir 10 units with breakfast and dinner. The patient will be given aspirin 81 mg p.o. daily, Lipitor 20 or 40 mg daily, Lopressor 25 mg twice a day and p.o. antibiotics as per Infectious Disease recommendation. Discharge followup with within 1 week, discharge followup with Dr. Rivero within 1 week and discharge followup with Dr. Ciro Warren within 1 week. During this hospitalization, the patient was extensively explained about the details of his medical condition, diagnostic test results and recommendation by all the physician involved the care of the patient on a daily basis, which he acknowledged and understood. Time spent in the entire discharge process 45 minutes. Dictated and electronically signed, not read. Melo Rivero MD
--- NOTE | 2018-04-15 12:14 | CP.PCM.PN ---
<Kimani Mejias - Last Filed: 04/15/18 12:08> Subjective - Date & Time of Evaluation Date of Evaluation: 04/15/18 Time of Evaluation: 12:08 - Subjective Subjective: Podiatry progress note for Dr. Galan 62 yo male seen and evaluated at bedside with Dr. Galan. Seen resting comfortably. Denies any acute events overnight. Denies N/V/F/C/SOB. States his foot is in no pain today. Has no other pedal complaints. Objective - Vital Signs/Intake and Output Vital Signs (last 24 hours): Temp Pulse Resp BP Pulse Ox 97.5 F L 64 16 142/86 97 04/15/18 06:00 04/15/18 09:45 04/15/18 06:00 04/15/18 09:45 04/15/18 06:00 Intake and Output: 04/15/18 04/15/18 06:59 18:59 Intake Total 1220 Balance 1220 - Medications Medications: Current Medications Acetaminophen (Tylenol 325mg Tab) 650 mg PO Q6H PRN PRN Reason: Pain, Mild (1-3) Atorvastatin Calcium (Lipitor) 40 mg PO DIN [facility] Last Admin: 04/14/18 17:18 Dose: 40 mg Heparin Sodium (Porcine) (Heparin) 5,000 units SC Q12 [facility]; Protocol Last Admin: 04/15/18 09:44 Dose: 5,000 units Ceftaroline Fosamil 600 mg/ (Sodium Chloride) 100 mls @ 100 mls/hr IVPB Q12 [facility]; Protocol Stop: 04/18/18 14:01 Last Admin: 04/15/18 09:44 Dose: 100 mls/hr Insulin Human Regular (Humulin R Low) 0 units SC ACHS [facility]; Protocol Last Admin: 04/15/18 12:02 Dose: 1 unit Levalbuterol HCl (Xopenex) 0.63 mg IH [id number] [facility] Last Admin: 04/15/18 07:15 Dose: Not Given Metoprolol Tartrate (Lopressor) 25 mg PO BID [facility] Last Admin: 04/15/18 09:45 Dose: 25 mg Mupirocin (Bactroban Ointment) 10 gm TOP BID [facility] Last Admin: 04/15/18 09:45 Dose: 1 applic Pantoprazole Sodium (Protonix Ec Tab) 40 mg PO 0600 [facility] Last Admin: 04/15/18 06:02 Dose: 40 mg - Labs Labs: 04/13/18 07:00 04/13/18 07:00 PT 13.6 SECONDS (9.4-12.5) H 04/06/18 11:00 INR 1.18 04/06/18 11:00 APTT 31.3 Seconds (25.1-36.5) 04/06/18 11:00 - Constitutional Appears: Well, Non-toxic, No Acute Distress - Extremities Exam Additional comments: Right lower extremity focused exam: Vasc: DP/PT pulses palpable 2/4. Temperature gradient warm to cool. CFT < 3 sec to all digits x4. No pedal edema noted Derm: Surgical site along former location of first metatarsal approx 5cm in length with sutures intact, no signs of dehiscence noted, skin edges well- coapted. No drainage, no suleman-incision erythema, no malodor. Plantar forefoot circular ulceration approx 1.1cm in diameter and 0.1cm in depth with beefy granular wound base noted, no active drainage or purulence expressed, no malodor. Neuro: protective sensation grossly intact Ortho: No tenderness to palpation of surgical site or plantar forefoot ulceration - Neurological Exam Neurological Exam: Alert, Awake, Oriented x3 - Psychiatric Exam Psychiatric exam: Normal Affect, Normal Mood Assessment and Plan - Assessment and Plan (Free Text) Assessment: 62 y/o male who is POD 5 right foot 1st metatarsal resection and debridement of plantar forefoot ulceration Plan: Patient seen and evaluated with Dr. Galan Charts and labs reviewed: afebrile, absent leukocytosis MRI of RLE ordered, shows heterogenous soft tissue mass adjacent to amputated first met possible for abscess or hematoma. Some marrow edema at the distal margin of the 1st metatarsal amputation. X-ray of the lower extremity ordered; midfoot degenerative changes MOHIT/PVR ordered; demonstrate relatively normal MOHIT/PVR Path read from surgical specimen sent: metatarsal bone with focal acute OM and reparative changes; resection margin of bone is negative for acute inflammation; separate bone fragment negative for inflammation Dr. Galan spoke to Dr. Koroma who stated d/c on doxycycline and levaquin PO for [address] Rivero stated plan to d/c today Upon d/c will stop in wound clinic for dressing change and total contact cast application Pt to follow up with Dr. Galan in her office <Mable Galan - Last Filed: 04/16/18 11:37> Objective - Vital Signs/Intake and Output Vital Signs (last 24 hours): Temp Pulse Resp BP Pulse Ox 98.2 F 62 18 104/62 98 04/15/18 14:00 04/15/18 14:00 04/15/18 14:00 04/15/18 14:00 04/15/18 14:00 - Labs Labs: 04/13/18 07:00 04/13/18 07:00 PT 13.6 SECONDS (9.4-12.5) H 04/06/18 11:00 INR 1.18 04/06/18 11:00 APTT 31.3 Seconds (25.1-36.5) 04/06/18 11:00 Attending/Attestation - Attestation I have personally seen and examined this patient.: Yes I have fully participated in the care of the patient.: Yes I have reviewed all pertinent clinical information, including history, physical exam and plan: Yes
[2018-04-15 15:41] VITALS: BP 104/62; PULSE 62; RESP 18; TEMP 98.2; O2SAT 98
--- NOTE | 2018-04-15 16:32 | PN ---
DATE: 04/15/2018 CARDIOLOGY FOLLOWUP SUBJECTIVE: The patient is awake, alert. No issues. He is waiting for dressing and a cast on his foot. PHYSICAL EXAMINATION: VITAL SIGNS: Blood pressure varies. Blood pressure is 142/86, heart rate is in the 60s. NECK: Negative JVD. LUNGS: Without rales. HEART: Reveals S1 and S2. EXTREMITIES: Without edema. LABORATORY DATA: Laboratories revealed a glucose of 163. IMPRESSION: 1. Foot ulcer. 2. Peripheral vascular disease. 3. Diabetes mellitus. 4. Hypertension. 5. Anemia. PLAN: Given these findings, the patient is scheduled for discharge today. Because of his high probability for CAD, I have arranged for an outpatient stress test with the patient for 2 weeks from now once he recovers from his foot ulcer. I have discussed this with the patient in detail. Ciro Warren MD
--- NOTE | 2018-04-15 16:52 | CP.PCM.PN ---
Subjective - Date & Time of Evaluation Date of Evaluation: 04/15/18 Time of Evaluation: 10:50 - Subjective Subjective: Feeling better, no fevers, not in distress. Objective - Vital Signs/Intake and Output Vital Signs (last 24 hours): Temp Pulse Resp BP Pulse Ox 97.7 F 75 18 133/82 100 04/14/18 14:00 04/14/18 14:00 04/14/18 14:00 04/14/18 14:00 04/14/18 14:00 Intake and Output: 04/14/18 04/14/18 06:59 18:59 Intake Total 800 Balance 800 - Medications Medications: Current Medications Acetaminophen (Tylenol 325mg Tab) 650 mg PO Q6H PRN PRN Reason: Pain, Mild (1-3) Atorvastatin Calcium (Lipitor) 40 mg PO DIN [facility] Last Admin: 04/13/18 17:51 Dose: 40 mg Heparin Sodium (Porcine) (Heparin) 5,000 units SC Q12 [facility]; Protocol Last Admin: 04/14/18 10:46 Dose: 5,000 units Ceftaroline Fosamil 600 mg/ (Sodium Chloride) 100 mls @ 100 mls/hr IVPB Q12 [facility]; Protocol Stop: 04/18/18 14:01 Last Admin: 04/14/18 11:39 Dose: 100 mls/hr Insulin Human Regular (Humulin R Low) 0 units SC ACHS [facility]; Protocol Last Admin: 04/14/18 11:56 Dose: 1 unit Levalbuterol HCl (Xopenex) 0.63 mg IH [id number] [facility] Last Admin: 04/14/18 07:22 Dose: Not Given Metoprolol Tartrate (Lopressor) 25 mg PO BID [facility] Last Admin: 04/14/18 11:00 Dose: Not Given Mupirocin (Bactroban Ointment) 10 gm TOP BID [facility] Last Admin: 04/14/18 11:39 Dose: 1 applic Pantoprazole Sodium (Protonix Ec Tab) 40 mg PO 0600 [facility] Last Admin: 04/14/18 05:26 Dose: 40 mg - Labs Labs: 04/13/18 07:00 04/13/18 07:00 PT 13.6 SECONDS (9.4-12.5) H 04/06/18 11:00 INR 1.18 04/06/18 11:00 APTT 31.3 Seconds (25.1-36.5) 04/06/18 11:00 - Constitutional Appears: Non-toxic - Head Exam Head Exam: NORMAL INSPECTION - Respiratory Exam Respiratory Exam: Decreased Breath Sounds - Cardiovascular Exam Cardiovascular Exam: +S1, +S2 - GI/Abdominal Exam GI & Abdominal Exam: Soft. absent: Tenderness - Extremities Exam Additional comments: left foot with dressings in place Assessment and Plan - Assessment and Plan (Free Text) Plan: Assessment Left foot skin and skin structure infection, consider osteomyelitis S/P partial first metatarsal amputation POD #5- margins on pathology are clear history of osteomyelitis of right foot DM Plan continue Teflaro for now - can switch to to PO antibiotics (as discussed with Dr. Galan he was on Levaquin prior to this admission) Levaquin and Doxycycline for another 3-5 days with outpatient follow up with PMD and Podiatry
== END 2018-04-15 17:15 | disposition home or self-care (01) | DRG 629 ==
LOC: ED 10:00 → ERH 12:59 → 5RSO 14:54
PROVIDERS: ADMIT Internal Medicine; ATTEND Internal Medicine
PROC: 0QBN0ZZ Excision of Right Metatarsal, Open Approach (ICD-10-PCS; principal; 2018-04-09 07:30)
DX: E11.69 Type 2 diabetes mellitus with other specified complication (principal); L02.611 Cutaneous abscess of right foot; M86.8X7 Other osteomyelitis, ankle and foot; E11.621 Type 2 diabetes mellitus with foot ulcer; E11.51 Type 2 diabetes mellitus with diabetic peripheral angiopathy without gangrene; E11.65 Type 2 diabetes mellitus with hyperglycemia; E74.19 Other disorders of fructose metabolism; E78.5 Hyperlipidemia, unspecified; I08.1 Rheumatic disorders of both mitral and tricuspid valves; I13.10 Hypertensive heart and chronic kidney disease without heart failure, with stage 1 through stage 4 chronic kidney disease, or unspecified chronic kidney disease; K42.9 Umbilical hernia without obstruction or gangrene; K59.00 Constipation, unspecified; L97.519 Non-pressure chronic ulcer of other part of right foot with unspecified severity; M19.071 Primary osteoarthritis, right ankle and foot; D50.9 Iron deficiency anemia, unspecified; D63.8 Anemia in other chronic diseases classified elsewhere; D72.819 Decreased white blood cell count, unspecified; D72.820 Lymphocytosis (symptomatic); E11.22 Type 2 diabetes mellitus with diabetic chronic kidney disease; E11.40 Type 2 diabetes mellitus with diabetic neuropathy, unspecified; N17.9 Acute kidney failure, unspecified; N18.3 Chronic kidney disease, stage 3 (moderate); Z79.4 Long term (current) use of insulin; Z83.3 Family history of diabetes mellitus; Z89.411 Acquired absence of right great toe